=== PATIENT | male | born 1970 | race Caucasian/White ===

== ENCOUNTER 2017-01-28 19:12 | Inpatient (IN) | payer MEDICAID ==
[~2017-01-28] VITALS: Ht 167.6 cm; Wt 62.6 kg
[~2017-01-28 19:12] MED LIST: NKM
--- NOTE | 2017-01-28 19:24 | Emergency Room Report ---
History of Present Illness General Chief Complaint: Chest Pain Source: Patient Present Illness [facility] This 46-year-old male presented after increased chest pain. Patient gradual onset of symptoms. 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 Patient reports having aortic valve replaced . He states that he is not currently taking anticoagulation although he is supposed. The patient reports having Allergies: Coded Allergies: ASPIRIN (Verified Allergy, Unknown, 01/28/17) SERTRALINE (Verified Allergy, Unknown, 01/28/17) Patient History Past Medical History: see triage record Reviewed Nursing Documentation: PMH: Agreed, PSxH: Agreed Nursing Documentation-PMH Hx Pacemaker: Yes Hx Seizures: Yes Review of Systems All Other Systems: negative except mentioned in HPI Physical Exam Vital Signs Date Time Temp Pulse Resp B/P (MAP) Pulse Ox O2 Delivery O2 Flow Rate FiO2 01/28/17 19:07 98.6 84 18 104/72 98 Sp02 EP Interpretation: reviewed, normal General Appearance: normal inspection, well appearing, no apparent distress, alert, GCS 15 Head: atraumatic ENT: normal ENT inspection, hearing grossly normal, normal voice Neck: normal inspection, full range of motion, supple, no bony tend Respiratory: normal inspection, lungs clear, normal breath sounds, no respiratory distress, no retraction, no wheezing Cardiovascular #1: regular rate, rhythm, no edema, other - systolic click from valve no murmur Gastrointestinal: normal inspection, normal bowel sounds, non tender, soft, no guarding, no hernia Genitourinary: no CVA tenderness Musculoskeletal: normal inspection, back normal, normal range of motion Neurologic: normal inspection, alert, responsive, speech normal Psychiatric: normal inspection, judgement/insight normal, mood/affect normal Skin: normal inspection, normal color, no rash Medical Decision Making Diagnostic Impression: Primary Impression: ACS (acute coronary syndrome) Additional Impressions: Mechanical heart valve present Noncompliance with medication regimen ER Course Patient presented for chest pain. Differential diagnosis included but was not limited to acute coronary syndrome, pulmonary embolism, pneumonia, aortic dissection, shingles, pneumothorax, aortic dissection, esophageal rupture, pericarditis. The patient was noted to have chest pain. This appears to be related to the patient's lack of anticoagulation with his mechanical valve. Patient was given Lovenox empirically. The patient noted be thrombocytopenic. The patient was noted to have elevated troponin consistent with cardiac injury Patient was endorsed to Dr. Anaya the pending CT imaging and further disposition based on CT findings. Labs Test 01/28/17 19:20 01/28/17 19:41 01/28/17 20:50 01/28/17 20:57 White Blood Count 6.5 K/UL (4.8-10.8) Red Blood Count 3.66 M/UL (4.70-6.10) Hemoglobin 12.2 G/DL (14.2-18.0) Hematocrit 38.4 % (42.0-52.0) Mean Corpuscular Volume 105 FL (80-99) Mean Corpuscular Hemoglobin 33.4 PG (27.0-31.0) Mean Corpuscular Hemoglobin Concent 31.9 G/DL (32.0-36.0) Red Cell Distribution Width 14.2 % (11.6-14.8) Platelet Count 78 K/UL (150-450) Mean Platelet Volume 11.5 FL (6.5-10.1) Neutrophils (%) (Auto) % (45.0-75.0) Lymphocytes (%) (Auto) % (20.0-45.0) Monocytes (%) (Auto) % (1.0-10.0) Eosinophils (%) (Auto) % (0.0-3.0) Basophils (%) (Auto) % (0.0-2.0) Differential Total Cells Counted 100 Neutrophils % (Manual) 73 % (45-75) Lymphocytes % (Manual) 17 % (20-45) Monocytes % (Manual) 9 % (1-10) Eosinophils % (Manual) 1 % (0-3) Basophils % (Manual) 0 % (0-2) Band Neutrophils 0 % (0-8) Platelet Estimate Decreased Platelet Morphology Normal Red Blood Cell Morphology Normal Sodium Level 141 MMOL/L (136-145) Potassium Level 4.2 MMOL/L (3.5-5.1) Chloride Level 105 MMOL/L (98-107) Carbon Dioxide Level 26 MMOL/L (21-32) Anion Gap 11 mmol/L (5-15) Blood Urea Nitrogen 14 mg/dL (7-18) Creatinine 0.9 MG/DL (0.55-1.30) Estimat Glomerular Filtration Rate > 60 mL/min (>60) Glucose Level 81 MG/DL (74-106) Calcium Level 8.6 MG/DL (8.5-10.1) Total Bilirubin 0.5 MG/DL (0.2-1.0) Aspartate Amino Transf (AST/SGOT) 77 U/L (15-37) Alanine Aminotransferase (ALT/SGPT) 75 U/L (12-78) Alkaline Phosphatase 96 U/L (46-116) Total Creatine Kinase 143 U/L (26-308) Creatine Kinase MB 3.5 NG/ML (0.0-3.6) Creatine Kinase MB Relative Index 2.4 Total Protein 7.2 G/DL (6.4-8.2) Albumin 3.3 G/DL (3.4-5.0) Globulin 3.9 g/dL Albumin/Globulin Ratio 0.8 (1.0-2.7) Urine Color Yellow Urine Appearance Clear Urine pH 5 (4.5-8.0) Urine Specific [place] 1.020 (1.005-1.035) Urine Protein 3+ (NEGATIVE) Urine Glucose (UA) Negative (NEGATIVE) Urine Ketones Negative (NEGATIVE) Urine Occult Blood 5+ (NEGATIVE) Urine Nitrite Negative (NEGATIVE) Urine Bilirubin Negative (NEGATIVE) Urine Urobilinogen 1 MG/DL (0.0-1.0) Urine Leukocyte Esterase 1+ (NEGATIVE) Urine RBC 5-10 /HPF (0 - 0) Urine WBC 2-4 /HPF (0 - 0) Urine Squamous Epithelial Cells None /LPF (NONE/OCC) Urine Bacteria Few /HPF (NONE) Urine Opiates Screen Negative (NEGATIVE) Urine Barbiturates Screen Negative (NEGATIVE) Phencyclidine (PCP) Screen Negative (NEGATIVE) Urine Amphetamines Screen Negative (NEGATIVE) Urine Benzodiazepines Screen Negative (NEGATIVE) Urine Cocaine Screen Negative (NEGATIVE) Urine Marijuana (THC) Screen Positive (NEGATIVE) Troponin I 0.626 ng/mL (0.000-0.056) Prothrombin Time 10.9 SEC (9.30-11.50) Prothromb Time International Ratio 1.0 (0.9-1.1) Activated Partial Thromboplast Time 29 SEC (23-33) Last Vital Signs Date Time Temp Pulse Resp B/P (MAP) Pulse Ox O2 Delivery O2 Flow Rate FiO2 01/28/17 19:07 98.6 84 18 104/72 98 Status: unchanged Disposition: ADMITTED INPATIENT Condition: Serious KarDave Jan 28, 2017 19:24
[2017-01-28] MEDS ORDERED: Enoxaparin 80mg Inj SUBQ ONE (19:30)
[2017-01-28 19:31] LABS: MEAN CORPUSCULAR HEMOGLOBIN 33.4 PG (27.0-31.0); MEAN CORPUSCULAR HGB CONC 31.9 G/DL (32.0-36.0); MEAN CORPUSCULAR VOLUME 105 FL (80-99); MEAN PLATELET VOLUME 11.5 FL (6.5-10.1); PLATELET COUNT 78 K/UL (150-450); RED BLOOD COUNT 3.66 M/UL (4.70-6.10); RED CELL DISTRIBUTION WIDTH 14.2 % (11.6-14.8); WHITE BLOOD COUNT 6.5 K/UL (4.8-10.8)
[2017-01-28 19:45] VITALS: BP 113/76
[2017-01-28 20:21] LABS: ALANINE AMINOTRANSFERASE 75 U/L (12-78); ALBUMIN/GLOBULIN RATIO 0.8 (1.0-2.7); ANION GAP 11 mmol/L (5-15); ASPARTATE AMINO TRANSFERASE 77 U/L (15-37); CALCIUM 8.6 MG/DL (8.5-10.1); CARBON DIOXIDE 26 MMOL/L (21-32); CHLORIDE 105 MMOL/L (98-107); CKMB 3.5 NG/ML (0.0-3.6); CREATININE 0.9 MG/DL (0.55-1.30); GLOMERULAR FILTRATION RATE > 60 mL/min (>60); POTASSIUM 4.2 MMOL/L (3.5-5.1); SODIUM 141 MMOL/L (136-145); TOTAL PROTEIN 7.2 G/DL (6.4-8.2)
[2017-01-28 20:36] LABS: EOSINOPHILS % (MANUAL) 1 % (0-3); LYMPHOCYTES % (MANUAL) 17 % (20-45); NEUTROPHILS % (MANUAL) 73 % (45-75); TOTAL CELLS COUNTED 100
[2017-01-28 20:37] LABS: BAND NEUTROPHILS % (MANUAL) 0 % (0-8); BASOPHILS % (MANUAL) 0 % (0-2); PLATELET ESTIMATE DECREASED; PLATELET MORPHOLOGY NORMAL
[2017-01-28 20:47] LABS: APPEARANCE,URINE CLEAR; KETONES,URINE NEGATIVE (NEGATIVE); LEUKOCYTE ESTERASE ,URINE 1+ (NEGATIVE); NITRITE,URINE NEGATIVE (NEGATIVE); PH,URINE 5 (4.5-8.0); PROTEIN,URINE 3+ (NEGATIVE); UROBILINOGEN,URINE 1 MG/DL (0.0-1.0)
[2017-01-28 21:08] LABS: BACTERIA,URINE FEW /HPF
[2017-01-28 22:44] LABS: PROTHROMBIN TIME 10.9 SEC (9.30-11.50)
[2017-01-28] MEDS ORDERED: Morphine Sulfate 4mg/ml Inj IVP ONE (23:15)
[2017-01-28 23:45] VITALS: BP 124/91
[2017-01-29 01:40] VITALS: BP 112/71
[2017-01-29] MEDS ORDERED: Nitroglycerin Subl 0.4mg tab SL PRN (02:00)
[2017-01-29] MEDS ORDERED: Morphine Sulfate 4mg/ml Inj IVP PRN (02:00)
[2017-01-29 04:00] VITALS: BP 119/72
[2017-01-29 08:00] VITALS: BP 106/72
--- NOTE | 2017-01-29 09:01 | History & Physical ---
History and Physical History & Physicial seen and examined. Dictation completed Lala Augustine MD Jan 29, 2017 09:01
--- NOTE | 2017-01-29 09:08 | General Progress Note ---
Assessment/Plan Status: unchanged Assessment/Plan 1- NSTEMI 2- Cardiac surgery - history of - detailes unknown 3- anxiety/agitation 4- Non Compliance with medical advise plan: continue with current Lovenox Cardiology , Dr Valdez Notified explained the importance of staying in hospital. Side effect including . Not in agreement Subjective ROS Limited/Unobtainable: No Constitutional: Reports: malaise HEENT: Reports: no symptoms Cardiovascular: Reports: no symptoms Respiratory: Reports: no symptoms Gastrointestinal/Abdominal: Reports: no symptoms Genitourinary: Reports: no symptoms Allergies: Coded Allergies: ASPIRIN (Verified Allergy, Unknown, 01/28/17) SERTRALINE (Verified Allergy, Unknown, 01/28/17) Objective Last 24 Hour Vital Signs Date Time Temp Pulse Resp B/P (MAP) Pulse Ox O2 Delivery O2 Flow Rate FiO2 01/29/17 08:00 98.2 78 17 106/72 97 Room Air 01/29/17 04:00 98.6 74 18 119/72 95 Room Air 01/29/17 04:00 71 01/29/17 03:10 98.6 01/29/17 01:40 98.6 77 18 112/71 95 Room Air 01/29/17 00:42 98.6 85 18 124/91 98 Room Air 01/28/17 23:45 98.6 85 18 124/91 98 Room Air 01/28/17 19:45 98.6 82 18 113/76 98 Room Air 01/28/17 19:45 84 18 Room Air 01/28/17 19:07 98.6 84 18 104/72 98 Laboratory Tests 01/28/17 19:20: White Blood Count 6.5, Red Blood Count 3.66L, Hemoglobin 12.2L, Hematocrit 38.4L , Mean Corpuscular Volume 105H, Mean Corpuscular Hemoglobin 33.4H, Mean Corpuscular Hemoglobin Concent 31.9L, Red Cell Distribution Width 14.2, Platelet Count 78L, Mean Platelet Volume 11.5H, Neutrophils (%) (Auto) , Lymphocytes (%) (Auto) , Monocytes (%) (Auto) , Eosinophils (%) (Auto) , Basophils (%) (Auto) , Differential Total Cells Counted 100, Neutrophils % ( Manual) 73, Lymphocytes % (Manual) 17L, Monocytes % (Manual) 9, Eosinophils % ( Manual) 1, Basophils % (Manual) 0, Band Neutrophils 0, Platelet Estimate DecreasedL, Platelet Morphology Normal, Red Blood Cell Morphology Normal, Sodium Level 141, Potassium Level 4.2, Chloride Level 105, Carbon Dioxide Level 26, Anion Gap 11, Blood Urea Nitrogen 14, Creatinine 0.9, Estimat Glomerular Filtration Rate > 60, Glucose Level 81, Calcium Level 8.6, Total Bilirubin 0.5, Aspartate Amino Transf (AST/SGOT) 77H, Alanine Aminotransferase (ALT/SGPT) 75, Alkaline Phosphatase 96, Total Creatine Kinase 143, Creatine Kinase MB 3.5, Creatine Kinase MB Relative Index 2.4, Troponin I 0.588H, Total Protein 7.2, Albumin 3.3L, Globulin 3.9, Albumin/Globulin Ratio 0.8L 01/28/17 19:41: Urine Color Yellow, Urine Appearance Clear, Urine pH 5, Urine Specific [place] 1.020, Urine Protein 3+H, Urine Glucose (UA) Negative, Urine Ketones Negative, Urine Occult Blood 5+H, Urine Nitrite Negative, Urine Bilirubin Negative, Urine Urobilinogen 1H, Urine Leukocyte Esterase 1+H, Urine RBC 5-10H, Urine WBC 2-4, Urine Squamous Epithelial Cells None, Urine Bacteria Few, Urine Opiates Screen Negative, Urine Barbiturates Screen Negative, Phencyclidine (PCP) Screen Negative, Urine Amphetamines Screen Negative, Urine Benzodiazepines Screen Negative, Urine Cocaine Screen Negative, Urine Marijuana (THC) Screen PositiveH 01/28/17 20:50: Troponin I 0.626H 01/28/17 20:57: Prothrombin Time 10.9, Prothromb Time International Ratio 1.0, Activated Partial Thromboplast Time 29 Height (Feet): 5 Height (Inches): 6.00 Weight (Pounds): 138 General Appearance: WD/WN EENT: PERRL/EOMI Neck: supple Cardiovascular: normal rate Respiratory/Chest: lungs clear Abdomen: soft Extremities: non-tender Neurologic: 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
--- NOTE | 2017-01-29 09:50 | Diagnostic Imaging Report ---
Indication: Chest pain Technique: Continuous helical transaxial imaging of the chest was obtained from the thoracic inlet to the upper abdomen during rapid intravenous contrast administration. Arterial phase of enhancement obtained. Coronal 2-D reformats were also obtained and maximum intensity projection images in multiple planes. Study obtained in a Siemens sensation [address] Total Dose length Product (DLP): [address] Dose Index Volume (CTDIvol): 0.17, 12.62, 50.49, 17.43 mGy Comparison: None Findings: Pulmonary artery is well opacified. There is no filling defect to suggest pulmonary embolus. The pulmonary artery is enlarged consistent with pulmonary hypertension. The heart is enlarged. There is a pacemaker present. Aorta is moderately calcified. 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 The vessel may be occluded. A prosthetic aortic valve noted. Minimal reticulation demonstrated within the lungs especially at the lung bases posteriorly. Some of this may be due to atelectasis. Gallbladder is contracted. The remainder of the visualized part of the upper abdomen is unremarkable. Degenerative changes of the thoracic spine are noted. There is a scoliosis convex to the left. Impression: No evidence of pulmonary embolus, aortic dissection or aneurysm. Enlarged pulmonary artery suspicious for pulmonary artery hypertension. Status post aortic valve replacement. Aberrant right spleen and artery. This may be occluded proximally. Atherosclerotic vascular disease Enlarged right thyroid lobe. Pacemaker Scoliosis and degenerative changes of the spine. [facility] has communicated the preliminary results to the Emergency Department. Their findings are largely concordant with this report. The CT scanner at [facility] is accredited by the [employer] and the scans are performed using dose optimization techniques as appropriate to a performed exam including Automatic Exposure control.
[2017-01-29] MEDS ORDERED: Enoxaparin 60mg Inj SUBQ SCH (10:00)
--- NOTE | 2017-01-29 11:58 | Diagnostic Imaging Report ---
Indication: Dyspnea Comparison: None A single view chest radiograph was obtained. Findings: No definite infiltrate or pulmonary vascular congestion identified. Sternotomy and pacemaker noted. The heart is enlarged. The aorta is mildly enlarged consistent with atherosclerotic vascular disease. The bones are remarkable. Impression: No acute disease
--- NOTE | 2017-01-30 10:31 | History and Physical Report ---
DATE OF ADMISSION: 01/28/2017 SOURCE OF INFORMATION: The patient and EMR. HISTORY OF PRESENT ILLNESS: The patient is a pleasant 46-year-old white male. He is a . He gives prior history of multiple cardiac surgeries in the home town in [place]. He reported that he lost consciousness while he was sitting in . He denies any problem with having the control of urine or bladder/bowel movement. He denies any chest pain or headache. He denies palpitation. MEDICATIONS: Hospital medications including, but not limited to morphine sulfate, nitroglycerin, and ranitidine. ALLERGIES: Aspirin and sertraline. SOCIAL HISTORY: Positive for illicit drug abuse (reported THC), positive for tobacco abuse at least 1 pack a day. The patient reported to have 11 children ? FAMILY HISTORY: Reviewed and noncontributory. REVIEW OF SYSTEMS: The patient's all 12 elements of review of systems reviewed with the patient. Pertinent positives and negatives reported as above. PHYSICAL EXAMINATION: VITAL SIGNS: Blood pressure 100/70, temperature 98.2 degrees, pulse oximetry 98% on room air, and respiratory rate 18. HEAD AND NECK: Atraumatic and normocephalic. CHEST: Clear to auscultation. Positive for, not clear, scars of prior surgeries. ABDOMEN: Soft. No organomegaly. MUSCULOSKELETAL: No gross focal motor deficit. NEUROLOGIC: Awake, alert, and oriented x3. PSYCHIATRIC: Mood and affect are anxious. LABORATORY AND DIAGNOSTIC DATA: Labs dated 01/28/2017 shows WBC 6.5, hemoglobin 12.2, platelet count 78, and MCV of 105. Sodium 141, potassium 4.2, BUN 14, and creatinine 0.9. AST 77. Troponin 0.5. Urinalysis, positive for 3+ protein. ASSESSMENT AND PLAN: 1. Non-ST myocardial infarction. 2. Cardiac surgeries - history of - detailed information unavailable. 3. Anemia. 4. Proteinuria. 5. Abnormal liver function tests. 6. Illicit drug abuse and noncompliance with medical advice. 7. Gastrointestinal and deep venous thrombosis prophylaxis. PLAN OF CARE: I agree to admit the patient for telemetry unit. We will repeat the troponin levels x3. Continue with the aspirin, heparin subcutaneous for DVT prophylaxis. Lala Augustine M.D. DR: Jarret JOB#: [id number] CC:
--- NOTE | 2017-01-31 00:15 | Discharge Summary 2 SIG ---
DATE OF ADMISSION: 01/28/2017 DATE OF SIGNING AGAINST MEDICAL ADVISE : 01/29/2017 REASON FOR ADMISSION: 46 years old male presented to the emergency department complaining of chest pain with gradual onset of the symptoms. 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 The patient reported multiply surgeries in [place], including aortic valve replacement. The patient was not on any anticoagulation. The patient also reported smoking , over one pack a day and using marijuana. In the emergency department, first troponin was elevated- 0.588. Chest x-ray revealed no acute cardiopulmonary pathology. EKG with dual pacer activity, but no ST elevation. Aspirin was given in ED . The patient was admitted for further management. Urinalysis revealed proteinuria and microhematuria and +1 leukocyte esterase. HOSPITAL STAY: The patient was admitted. The patient was started on aspirin. Second troponin was also positive with a trend up to 0.626. The patient was started on anticoagulation with Lovenox for possible NSTEMI. Cardiology consult was requested. CTA revealed no evidence of the PE, no aortic dissection or aneurysm. Venous duplex bilateral lower extremities was negative. Blood pressure was stable. Pulse oximetry was stable on room air. The patient had mild anemia with hemoglobin -12.2 and hematocrit -38.4. Liver enzyme revealed elevated AST - 77. The next day patient stated that his pain resolved and decided to go home. he He denied any chest pain, shortness of breath, or other symptoms. The risks and consequences of signing against medical advice were discussed with the patient. The patient verbalized understanding . nevertheless insisted on signing against medical advice form. He signed the form and left. FINAL DIAGNOSES: 1. Chest pain, 2. Elevated troponin, 3. Possibly non-ST elevation myocardial infarction. 4 Congenital heart disease with history of aortic valve replacement 5. Proteinuria. 6. Anemia. 7. Abnormal liver function tests. 8. Illicit drug abuse and noncompliance with medical advice. Lala Augustine M.D. I have been assigned to dictate discharge summary on this account and I was not involved in the patient's management. Estephania Chaves N.P. ([place]te[place]) DR: SARY JOB#: [id number] CC: CORINNA
--- NOTE | 2017-02-01 09:00 | Diagnostic Imaging Report ---
APPROVED REPORT CPT Code: 35861 Present Symptoms Lower Extremity Pain: Bilateral BILATERAL: Imaging reveals a patent deep venous system bilaterally. There is no evidence of thrombus within the femoral, popliteal or tibial segments. The greater saphenous veins are also within normal limits. Doppler indicates normal spontaneous flow within these segments.
== END 2017-01-29 08:30 | disposition left against medical advice (07) | DRG 190 ==
LOC: EDBD 19:12 → EMR 20:17 → ENRESERV 21:29 → EDBEDREQ 21:32 → 2E 23:50 → EDBEDREQ 01-29 01:20 → 2E 01-29 01:25
DX: I21.4 Non-ST elevation (NSTEMI) myocardial infarction (principal); Z95.2 Presence of prosthetic heart valve; D64.9 Anemia, unspecified; F17.200 Nicotine dependence, unspecified, uncomplicated; F12.10 Cannabis abuse, uncomplicated; Q24.9 Congenital malformation of heart, unspecified; R79.89 Other specified abnormal findings of blood chemistry; Z91.19 Patient's noncompliance with other medical treatment and regimen; Z88.6 Allergy status to analgesic agent; Z88.8 Allergy status to other drugs, medicaments and biological substances
CPT/HCPCS: 36415; 71010; 71275; 80053; 80307; 81003; 82550; 82553; 84484; 85007; 85025; 85610; 85730; 87081; 93005; 93970; 96372; 96374; 96375; 99284

== ENCOUNTER 2017-03-02 16:49 | Emergency (ER) | payer SELFPAY ==
[~2017-03-02] VITALS: Ht 167.6 cm; Wt 72.6 kg
[2017-03-02 17:00] VITALS: BP 114/72
--- NOTE | 2017-03-02 17:02 | Emergency Room Report ---
History of Present Illness General Chief Complaint: Chest Pain Source: Patient, EMS Present Illness HPI Patient is a 46-year-old male presented after increased chest pain. Patient prior history of mechanical valve. Patient had prior history of pacemaker. Patient denied taking his medications. The patient reports having had gradual onset of symptoms. He reports having some pain onset approximately one hour prior to arrival. Patient reports having alcohol earlier in the day. Allergies: Coded Allergies: ASPIRIN (Verified Allergy, Unknown, 01/28/17) SERTRALINE (Verified Allergy, Unknown, 01/28/17) Patient History Past Medical History: see triage record Reviewed Nursing Documentation: PMH: Agreed, PSxH: Agreed Nursing Documentation-PMH Past Medical History: No History, Except For Hx Cardiac Problems: No Hx Pacemaker: Yes Hx Cancer: No Hx Gastrointestinal Problems: No Hx Neurological Problems: Yes Hx Seizures: Yes Review of Systems All Other Systems: negative except mentioned in HPI Physical Exam Vital Signs Date Time Temp Pulse Resp B/P (MAP) Pulse Ox O2 Delivery O2 Flow Rate FiO2 03/02/17 16:44 98.4 100 18 117/69 100 Room Air Sp02 EP Interpretation: reviewed, normal General Appearance: normal inspection, no apparent distress, alert, GCS 15, non -toxic, other - disheveled, Chronically Ill Head: atraumatic ENT: normal ENT inspection, hearing grossly normal, normal voice Neck: normal inspection, full range of motion, supple, no bony tend Respiratory: normal inspection, lungs clear, normal breath sounds, no respiratory distress, no retraction, no wheezing Cardiovascular #1: regular rate, rhythm, no edema, other - systolic click Gastrointestinal: normal inspection, normal bowel sounds, non tender, soft, no guarding, no hernia Genitourinary: no CVA tenderness Musculoskeletal: back normal, normal range of motion, tender - left leg Neurologic: normal inspection, alert, oriented x3, responsive, city 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 Differential diagnosis included but was not limited to acute coronary syndrome, pulmonary embolism, pneumonia, aortic dissection, shingles, pneumothorax, aortic dissection, esophageal Rupture, pericarditis. Because of complexity of patient's case laboratory testing and imaging studies were ordered. I EKG interpreted by me showed atrial paced rhythm with a rate of [address] or T wave changes. Patient was given Lovenox. The patient was advised risk benefits alternatives of leaving AGAINST MEDICAL ADVICE and he indicated understanding and all questions are answered patient still continued want to leave and signed AGAINST MEDICAL ADVICE. Despite risks including but not limited to disability and worsening of current lifestyle. Patient was advised to return at anytime. Labs Test 03/02/17 17:15 White Blood Count 5.4 K/UL (4.8-10.8) Red Blood Count 3.17 M/UL (4.70-6.10) Hemoglobin 10.0 G/DL (14.2-18.0) Hematocrit 31.0 % (42.0-52.0) Mean Corpuscular Volume 98 FL (80-99) Mean Corpuscular Hemoglobin 31.7 PG (27.0-31.0) Mean Corpuscular Hemoglobin Concent 32.4 G/DL (32.0-36.0) Red Cell Distribution Width 14.3 % (11.6-14.8) Platelet Count 131 K/UL (150-450) Mean Platelet Volume 9.4 FL (6.5-10.1) Neutrophils (%) (Auto) 65.8 % (45.0-75.0) Lymphocytes (%) (Auto) 19.7 % (20.0-45.0) Monocytes (%) (Auto) 10.9 % (1.0-10.0) Eosinophils (%) (Auto) 1.8 % (0.0-3.0) Basophils (%) (Auto) 1.8 % (0.0-2.0) Prothrombin Time 11.3 SEC (9.30-11.50) Prothromb Time International Ratio 1.1 (0.9-1.1) Activated Partial Thromboplast Time 26 SEC (23-33) EKG Diagnostic Results Rate: other Rhythm: other - paced rhythm Rhythm Strip Diag. Results EP Interpretation: yes Rhythm: no PVC's, no ectopy, other - paced rhythm Last Vital Signs Date Time Temp Pulse Resp B/P (MAP) Pulse Ox O2 Delivery O2 Flow Rate FiO2 03/02/17 16:44 98.4 100 18 117/69 100 Room Air Status: unchanged Disposition: ADMITTED INPATIENT Condition: Serious Dave Lakhani Mar 02, 2017 17:02
[2017-03-02] MEDS ORDERED: Enoxaparin 80mg Inj SUBQ ONE (17:15)
[2017-03-02 17:36] LABS: BASOPHILS % (AUTO) 1.8 % (0.0-2.0); EOSINOPHILS % (AUTO) 1.8 % (0.0-3.0); LYMPHOCYTES % (AUTO) 19.7 % (20.0-45.0); MEAN CORPUSCULAR HEMOGLOBIN 31.7 PG (27.0-31.0); MEAN CORPUSCULAR HGB CONC 32.4 G/DL (32.0-36.0); MEAN CORPUSCULAR VOLUME 98 FL (80-99); MEAN PLATELET VOLUME 9.4 FL (6.5-10.1); MONOCYTES % (AUTO) 10.9 % (1.0-10.0); NEUTROPHILS % (AUTO) 65.8 % (45.0-75.0); PLATELET COUNT 131 K/UL (150-450); RED BLOOD COUNT 3.17 M/UL (4.70-6.10); RED CELL DISTRIBUTION WIDTH 14.3 % (11.6-14.8); WHITE BLOOD COUNT 5.4 K/UL (4.8-10.8)
[2017-03-02 17:40] LABS: INR 1.1 (0.9-1.1); PROTHROMBIN TIME 11.3 SEC (9.30-11.50)
[2017-03-02 17:52] LABS: ANION GAP 12 mmol/L (5-15); CALCIUM 8.4 MG/DL (8.5-10.1); CARBON DIOXIDE 27 MMOL/L (21-32); CHLORIDE 106 MMOL/L (98-107); GLOMERULAR FILTRATION RATE > 60 mL/min (>60); POTASSIUM 3.8 MMOL/L (3.5-5.1); SODIUM 144 MMOL/L (136-145)
[2017-03-02 17:59] VITALS: BP 124/75
[2017-03-02] MEDS ORDERED: Acetaminophen 500mg (ES) tab ORAL ONE (18:00)
[2017-03-02 18:06] LABS: ALANINE AMINOTRANSFERASE 35 U/L (12-78); ALBUMIN/GLOBULIN RATIO 0.8 (1.0-2.7); ASPARTATE AMINO TRANSFERASE 44 U/L (15-37); CKMB 4.6 NG/ML (0.0-3.6); TOTAL PROTEIN 7.1 G/DL (6.4-8.2)
--- NOTE | 2017-03-03 12:54 | Diagnostic Imaging Report ---
Indication: SOB Technique: One view of the chest Comparison: 01/28/2017 Findings: The heart is enlarged. There is generalized bilateral interstitial prominence new increases the previous study.. There is a left chest bifocal pacemaker. The pleural spaces are clear. Prior median sternotomy and aortic valve repair noted Impression: Mild interstitial congestion Cardiomegaly Other stable findings as noted
--- NOTE | 2017-03-05 15:37 | Cardiology Report ---
APPROVED REPORT EKG Measurement Heart [id number] atrrial sensed ventricualr paced
== END 2017-03-02 18:04 | disposition left against medical advice (07) ==
LOC: EDBD 16:49 → EMR 17:15
DX: R07.9 Chest pain, unspecified (principal); Z95.0 Presence of cardiac pacemaker; Z95.2 Presence of prosthetic heart valve; Z88.6 Allergy status to analgesic agent
CPT/HCPCS: 36415; 71010; 80053; 82550; 82553; 84484; 85025; 85610; 85730; 93005; 96372; 99283; J1650

== ENCOUNTER 2017-05-27 17:56 | Inpatient (IN) | payer MEDICAID ==
[~2017-05-27] VITALS: Ht 160 cm; Wt 63.5 kg
[2017-05-27 18:05] VITALS: BP 110/80
--- NOTE | 2017-05-27 18:26 | Emergency Room Report ---
History of Present Illness General Chief Complaint: Chest Pain Source: Patient, Medical Record Present Illness HPI 46-year-old male, history of hypertension, has a pacemaker, AVR p/w chest pain for one hour. Chest pain started while at rest. Localized to substernal area, no radiation to back or other areas, sharp in nature, gradual in onset, currently 8/10. + SOB. Denies palpitations, diaphoresis, n/v. Patient states that he was hospitalized one month ago, does not recall the hospital name, was told that he had a heart attack, but denies having any cardiac cath Denies fever, chills, cough, abd pain. Denies trauma. Allergies: Coded Allergies: ASPIRIN (Verified Allergy, Unknown, 01/28/17) SERTRALINE (Verified Allergy, Unknown, 01/28/17) Uncoded Allergies: ASPRIN (Allergy, Unknown, 05/27/17) Patient History Past Medical History: see triage record Past Surgical History: none Pertinent Family History: none Reviewed Nursing Documentation: PMH: Agreed, PSxH: Agreed Nursing Documentation-PMH Past Medical History: No History, Except For Hx Pacemaker: Yes Hx Cancer: No Hx Gastrointestinal Problems: No Hx Neurological Problems: Yes Hx Seizures: Yes Review of Systems All Other Systems: negative except mentioned in HPI Physical Exam Vital Signs Date Time Temp Pulse Resp B/P (MAP) Pulse Ox O2 Delivery O2 Flow Rate FiO2 05/27/17 17:59 98.7 87 16 112/81 98 Room Air 98.8 Sp02 EP Interpretation: reviewed, normal General Appearance: alert, GCS 15, non-toxic, mild distress Head: normocephalic, atraumatic Eyes: bilateral eye normal inspection, bilateral eye PERRL, bilateral eye EOMI ENT: normal ENT inspection, normal pharynx, normal voice, moist mucus membranes Neck: normal inspection, full range of motion, supple Respiratory: normal inspection, lungs clear, normal breath sounds, no respiratory distress, no retraction, no wheezing, speaking full sentences, chest symmetrical Cardiovascular #1: normal inspection, regular rate, rhythm, no edema, normal capillary refill Cardiovascular #2: 2+ radial (R), 2+ radial (L) Gastrointestinal: normal inspection, non tender, soft, non-distended, no guarding Genitourinary: no CVA tenderness Musculoskeletal: normal inspection, back normal, normal range of motion, non- tender Neurologic: normal inspection, alert, oriented x3, responsive, motor strength/ tone normal, sensory intact, normal gait, speech normal Psychiatric: normal inspection, judgement/insight normal, memory normal Skin: normal inspection, normal color, no rash, warm/dry, well hydrated, normal turgor Medical Decision Making Diagnostic Impression: Primary Impression: ACS (acute coronary syndrome) ER Course 46-year-old male p/w CP DDX: ACS vs. CHF vs. pneumonia vs. gastritis/GERD vs. pneumothorax versus pericarditis Plan: IV access, obtain labs including troponin, EKG, CXR pain control with nitro / morphine ER course: Patient not gien ASA states allergic trop positive given heparin Disposition: pt admitted to tele under Dr Augustine who has accepted pt Please note that this Emergency Department Report was dictated using [employer] technology software, occasionally this can lead to erroneous entry secondary to interpretation by the dictation equipment. EKG Diagnostic Results EP Interpretation: Yes Rate: normal Rhythm: Paced rhythm ST Segments: Wide QRS, T wave inversion aVL, no sgarbossa criteria ASA given to patient: no due to allergy Rhythm Strip EP Interpretation: Yes Rate: 90 Rhythm: NSR, no PVCs, no ectopy Chest X-ray CXR: Ordered: Yes 1 view Indication: Chest pain EP interpretation: Yes Interpretation: No consolidation, no effusion, no PTX, no acute cardiopulmonary disease Impression: No acute disease Electronically signed by Jenna Fair MD Laboratory Tests Test 05/27/17 18:20 05/27/17 20:25 White Blood Count 6.0 K/UL (4.8-10.8) Red Blood Count 4.25 M/UL (4.70-6.10) L Hemoglobin 11.2 G/DL (14.2-18.0) L Hematocrit 36.2 % (42.0-52.0) L Mean Corpuscular Volume 85 FL (80-99) Mean Corpuscular Hemoglobin 26.4 PG (27.0-31.0) L Mean Corpuscular Hemoglobin Concent 31.1 G/DL (32.0-36.0) L Red Cell Distribution Width 16.9 % (11.6-14.8) H Platelet Count 98 K/UL (150-450) L Mean Platelet Volume 13.2 FL (6.5-10.1) H Neutrophils (%) (Auto) % (45.0-75.0) Lymphocytes (%) (Auto) % (20.0-45.0) Monocytes (%) (Auto) % (1.0-10.0) Eosinophils (%) (Auto) % (0.0-3.0) Basophils (%) (Auto) % (0.0-2.0) Differential Total Cells Counted 100 Neutrophils % (Manual) 79 % (45-75) H Lymphocytes % (Manual) 18 % (20-45) L Monocytes % (Manual) 2 % (1-10) Eosinophils % (Manual) 1 % (0-3) Basophils % (Manual) 0 % (0-2) Band Neutrophils 0 % (0-8) Platelet Estimate Decreased L Platelet Morphology Normal Hypochromasia 1+ Anisocytosis 1+ Urine Color Yellow Urine Appearance Clear Urine pH 6 (4.5-8.0) Urine Specific Cassandra 1.020 (1.005-1.035) Urine Protein 3+ (NEGATIVE) H Urine Glucose (UA) Negative (NEGATIVE) Urine Ketones Negative (NEGATIVE) Urine Occult Blood 4+ (NEGATIVE) H Urine Nitrite Negative (NEGATIVE) Urine Bilirubin Negative (NEGATIVE) Urine Urobilinogen 1 MG/DL (0.0-1.0) H Urine Leukocyte Esterase 1+ (NEGATIVE) H Urine RBC Tntc /HPF (0 - 0) H Urine WBC 2-4 /HPF (0 - 0) Urine Squamous Epithelial Cells Occasional /LPF Urine Bacteria Occasional /HPF (NONE) Sodium Level 138 MMOL/L (136-145) Potassium Level 4.6 MMOL/L (3.5-5.1) Chloride Level 100 MMOL/L (98-107) Carbon Dioxide Level 30 MMOL/L (21-32) Anion Gap 8 mmol/L (5-15) Blood Urea Nitrogen 25 mg/dL (7-18) H Creatinine 1.1 MG/DL (0.55-1.30) Estimate Glomerular Filtration Rate > 60 mL/min (>60) Glucose Level 73 MG/DL (74-106) L Calcium Level 8.7 MG/DL (8.5-10.1) Total Bilirubin 0.5 MG/DL (0.2-1.0) Aspartate Amino Transferase (AST) 62 U/L (15-37) H Alanine Aminotransferase (ALT) 43 U/L (12-78) Alkaline Phosphatase 109 U/L (46-116) Troponin I 0.113 ng/mL (0.000-0.056) Pro-B-Type Natriuretic Peptide 6542 pg/mL (0-125) H Total Protein 7.6 G/DL (6.4-8.2) Albumin 3.4 G/DL (3.4-5.0) Globulin 4.2 g/dL Albumin/Globulin Ratio 0.8 (1.0-2.7) L Urine Opiates Screen Negative (NEGATIVE) Urine Barbiturates Screen Negative (NEGATIVE) Phencyclidine (PCP) Screen Negative (NEGATIVE) Urine Amphetamines Screen Negative (NEGATIVE) Urine Benzodiazepines Screen Positive (NEGATIVE) H Urine Cocaine Screen Negative (NEGATIVE) Urine Marijuana (THC) Screen Positive (NEGATIVE) H Serum Alcohol 13 mg/dL Prothrombin Time 12.3 SEC (9.30-11.50) H Prothrombin Time INR 1.2 (0.9-1.1) H PTT 26 SEC (23-33) Last Vital Signs Date Time Temp Pulse Resp B/P (MAP) Pulse Ox O2 Delivery O2 Flow Rate FiO2 05/27/17 17:59 98.7 87 16 112/81 98 Room Air 98.8 Disposition: ADMITTED INPATIENT Condition: Serious Scripts No Active Prescriptions or Reported Meds Jenna Fair M.D. May 27, 2017 18:26
[2017-05-27 18:34] LABS: HEMATOCRIT 36.2 % (42.0-52.0); HEMOGLOBIN 11.2 G/DL (14.2-18.0); MEAN CORPUSCULAR VOLUME 85 FL (80-99); PLATELET COUNT 98 K/UL (150-450); RED BLOOD COUNT 4.25 M/UL (4.70-6.10); RED CELL DISTRIBUTION WIDTH 16.9 % (11.6-14.8)
[2017-05-27 18:41] LABS: APPEARANCE,URINE CLEAR; BILIRUBIN, URINE NEGATIVE (NEGATIVE); GLUCOSE, URINE (UA) NEGATIVE (NEGATIVE); KETONES,URINE NEGATIVE (NEGATIVE); LEUKOCYTE ESTERASE ,URINE 1+ (NEGATIVE); NITRITE,URINE NEGATIVE (NEGATIVE); PH,URINE 6 (4.5-8.0); PROTEIN,URINE 3+ (NEGATIVE); UROBILINOGEN,URINE 1 MG/DL (0.0-1.0)
[2017-05-27 18:45] LABS: COLOR,URINE YELLOW
[2017-05-27 18:58] LABS: ANION GAP 8 mmol/L (5-15); BLOOD UREA NITROGEN 25 mg/dL (7-18); CALCIUM 8.7 MG/DL (8.5-10.1); CARBON DIOXIDE 30 MMOL/L (21-32); CHLORIDE 100 MMOL/L (98-107); CREATININE 1.1 MG/DL (0.55-1.30); POTASSIUM 4.6 MMOL/L (3.5-5.1); SODIUM 138 MMOL/L (136-145)
[2017-05-27 19:00] VITALS: BP 110/77
[2017-05-27 19:10] LABS: ALANINE AMINOTRANSFERASE 43 U/L (12-78); ALBUMIN 3.4 G/DL (3.4-5.0); ALBUMIN/GLOBULIN RATIO 0.8 (1.0-2.7); ALKALINE PHOSPHATASE 109 U/L (46-116); ASPARTATE AMINO TRANSFERASE 62 U/L (15-37); BILIRUBIN,TOTAL 0.5 MG/DL (0.2-1.0)
[2017-05-27] MEDS ORDERED: Heparin 5000 units/ml inj IV ONE ×2 (20:15→22:00)
[2017-05-27] MEDS ORDERED: Heparin 25,000u/D5W 500ml 500 ML IV SCH ×2 (20:15→22:00)
[2017-05-27] MEDS ORDERED: Morphine Sulfate 4mg/ml Inj IVP ONE (20:15)
[2017-05-27 20:53] LABS: INR 1.2 (0.9-1.1)
[2017-05-27 21:18] VITALS: BP 108/72
[2017-05-27] MEDS ORDERED: Nitroglycerin Subl 0.4mg tab SL PRN (22:00)
[2017-05-27 22:45] VITALS: BP 112/81
[2017-05-28] VITALS: BP 111/76
[2017-05-28] MEDS ORDERED: Morphine Sulfate 4mg/ml Inj ONE ×2 (00:25→04:34)
[2017-05-28] MEDS: Morphine Sulfate 2mg/ml Inj IVP PRN ×2 (00:38→04:42)
[2017-05-28 04:00] VITALS: BP 107/74
--- NOTE | 2017-05-28 07:37 | History & Physical ---
History and Physical History & Physicial seen and examined. Dictation completed Lala Augustine MD May 28, 2017 07:37
--- NOTE | 2017-05-28 09:32 | History and Physical Report ---
DATE OF ADMISSION: 05/27/2017 SOURCE OF INFORMATION: The patient and EMR. HISTORY OF PRESENT ILLNESS: The patient is a 46-year-old homeless white male. The patient is complaining of the chest pain. The patient is complaining of the pain which is localized to the anterior part of the chest with radiation to both of his shoulders. The patient gives prior history of open heart surgery as a child and subsequently pacemaker placement in 1991. The patient is not able to provide the location for these symptoms. The patient is a status post hospitalization in [facility] about a month ago, status post AMA when he was asking for more narcotics IV medications. At the time of evaluation, the patient denies any nausea, vomitus, diarrhea, or constipation. PAST SURGICAL HISTORY: Open heart surgery, pacemaker placement (the detailed information unavailable). ALLERGIES: To aspirin and sertraline. FAMILY HISTORY: Reviewed and noncontributory. MEDICATIONS: Current hospital medications including, but not limited to Protonix 40 mg daily, nitroglycerin 0.4, and heparin drip. SOCIAL HISTORY: The patient is homeless. Positive for substance abuse including marijuana and benzos. PHYSICAL EXAMINATION: VITAL SIGNS: Blood pressure 110/70, pulse rate 95, temperature 97.5, and pulse oximetry 95% on room air. HEAD AND NECK: Atraumatic and normocephalic. CHEST: Clear to auscultation. HEART: S1 and S2. Regular rate and rhythm. ABDOMEN: Soft. No organomegaly. MUSCULOSKELETAL: No gross lateralized finding. PSYCHIATRIC: Mood and affect is anxious. LABORATORY AND DIAGNOSTIC DATA: Dated 05/27/2017 shows WBC 6, hemoglobin 11.2, and platelets 98,000. Sodium 138, potassium 4.6, BUN 25, and creatinine 1.1. Troponin 0.1. BNP 6542. Chest x-ray, official results pending. ASSESSMENT AND PLAN: 1. Abnormal troponin, possibility of non-ST myocardial infarction cannot be excluded. 2. Open heart surgery and pacemaker placement - detailed history unobtainable. 3. Refusal of medical care (as the patient reported that the patient did not want to have heparin drip). 4. Abnormal liver function tests. 5. Abnormal BNP. 6. Normocytic anemia. I had a detailed conversation regarding the refusal of getting heparin drip. The patient is repeatedly requesting for morphine medications. The patient started cursing. For the safety I stepped out of the room and I advised the nurses to use security if they notice any sign of aggression. Lala Augustine M.D. DR: PATRIZIA JOB#: [id number] CC:
[2017-05-28] MEDS ORDERED: Morphine Sulfate 4mg/ml Inj IVP PRN (10:45)
--- NOTE | 2017-05-28 11:27 | Diagnostic Imaging Report ---
Indication: Chest pain Comparison: 03/02/2017 A single view chest radiograph was obtained. Findings: Prominent pulmonary vascularity and heart size demonstrated. Interstitial densities noted. Sternotomy noted. Pacemaker again noted. IMPRESSION: Mild interstitial edema/CHF
--- NOTE | 2017-05-30 15:26 | Cardiology Report ---
APPROVED REPORT EKG Measurement Heart [id number] NE 142P76 [id number] a sensed v paced
--- NOTE | 2017-05-31 12:22 | Discharge Summary ---
Discharge Summary Hospital Course Date of Admission May 27, 2017 at 20:12 Date of Discharge May 28, 2017 at 12:15 Admitting Diagnosis acs HPI Jassi Zarco is a 46 year old male who was admitted on May 27, 2017 at 20: 12 for Acute Coronary Syndrome Hospital Course dc summary [id number] Discharge Condition Upon Discharge: stable Discharge Disposition Patient signed AMA Discharge Diagnoses: Discharge Instructions Discharge Instructions Special Instructions I have been assigned to complete a D/C Summary on this account. I was not involved in the patient management Estephania Chaves NP (Vanchtein) May 31, 2017 12:22
--- NOTE | 2017-06-01 03:00 | Discharge Summary 2 SIG ---
DATE OF ADMISSION: 05/27/2017 DATE OF DISCHARGE: 05/28/2017 REASON FOR ADMISSION: 46-year-old male with history of open-heart surgery, pacemaker, presented to emergency department complaining of chest pain. The patient was homeless. Troponin was elevated -0.113. ProBNP -6542. No leukocytosis, mild anemia. Hemoglobin -11.2 and platelets -98,000. Urine tox screen was positive for benzodiazepine and marijuana. Alcohol level- 13. AST elevated. Urinalysis revealed no evidence of UTI. Chest x-ray revealed mild CHF. The patient was admitted with chest pain, rule out acute coronary syndrome, possible non-STEMI. HOSPITAL COURSE: The patient was admitted to telemetry floor. Heparin drip was ordered for possible NSTEMI along with serial troponin to follow up. The patient refused heparin drip. He refused further blood draw. While the attending doctor tried to explain to the patient the rationale for heparin drip, the patient kept cursing and refusing the heparin drip. He used profanity words. Nursing staff was advised to use security. The patient decided to sign against medical advice form on 05/28/2017. He declined to listen to the risks and consequences of signing against medical advise. He signed the AMA form, refused to sign homeless consent, and left accompanied by security to the lobby. FINAL DIAGNOSES: 1. Abnormal troponin. 2. Possible [id number] myocardial infarction. 3. History of open-heart surgery, 4. Status post permanent pacemaker placement. 4. Abnormal LFT. 5. Abnormal proBNP of 6542, 6. Refusal of care. 7. Normocytic anemia. Lala Augustine M.D. I have been assigned to dictate discharge summary on this account and I was not involved in the patient's management. Estephania FreitasGood Samaritan HospitalBrandon N.P. DR: Jeanne JOB#: [id number] CC: CORINNA
== END 2017-05-28 12:15 | disposition left against medical advice (07) | DRG 190 ==
LOC: EDBD 17:56 → EMR 18:00 → 2E 20:12 → EDBEDREQ 21:09 → 2E 05-28 08:11
DX: I21.4 Non-ST elevation (NSTEMI) myocardial infarction (principal); I10 Essential (primary) hypertension; R74.9 Abnormal serum enzyme level, unspecified; Z95.0 Presence of cardiac pacemaker; Z88.6 Allergy status to analgesic agent; Z88.8 Allergy status to other drugs, medicaments and biological substances; Z59.0 Homelessness; R79.89 Other specified abnormal findings of blood chemistry; D64.9 Anemia, unspecified; Z53.29 Procedure and treatment not carried out because of patient's decision for other reasons; Z98.890 Other specified postprocedural states
CPT/HCPCS: 36415; 71045; 80053; 80307; 80329; 81003; 83880; 84484; 85007; 85025; 85610; 85730; 93005; 99285

== ENCOUNTER 2017-05-28 19:10 | Emergency (ER) | payer MEDICAID ==
[~2017-05-28] VITALS: Ht 167.6 cm; Wt 63.5 kg
[2017-05-28 19:15] VITALS: BP 120/80
[2017-05-28] MEDS ORDERED: Morphine Sulfate 4mg/ml Inj IVP ONE (19:30)
[2017-05-28 19:42] LABS: EOSINOPHILS % (AUTO) 0.3 % (0.0-3.0); HEMATOCRIT 37.7 % (42.0-52.0); HEMOGLOBIN 11.6 G/DL (14.2-18.0); LYMPHOCYTES % (AUTO) 15.2 % (20.0-45.0); MEAN CORPUSCULAR VOLUME 85 FL (80-99); MONOCYTES % (AUTO) 7.6 % (1.0-10.0); NEUTROPHILS % (AUTO) 75.8 % (45.0-75.0); PLATELET COUNT 107 K/UL (150-450); RED BLOOD COUNT 4.43 M/UL (4.70-6.10); RED CELL DISTRIBUTION WIDTH 16.8 % (11.6-14.8); WHITE BLOOD COUNT 5.6 K/UL (4.8-10.8)
[2017-05-28 19:52] LABS: ANION GAP 4 mmol/L (5-15); BLOOD UREA NITROGEN 29 mg/dL (7-18); CALCIUM 9.1 MG/DL (8.5-10.1); CARBON DIOXIDE 32 MMOL/L (21-32); CHLORIDE 100 MMOL/L (98-107); CREATININE 1.2 MG/DL (0.55-1.30); POTASSIUM 4.6 MMOL/L (3.5-5.1); SODIUM 136 MMOL/L (136-145)
[2017-05-28 20:07] LABS: ALANINE AMINOTRANSFERASE 44 U/L (12-78); ALBUMIN 3.5 G/DL (3.4-5.0); ALBUMIN/GLOBULIN RATIO 0.8 (1.0-2.7); ALKALINE PHOSPHATASE 113 U/L (46-116); ASPARTATE AMINO TRANSFERASE 57 U/L (15-37); BILIRUBIN,TOTAL 0.6 MG/DL (0.2-1.0); CKMB 7.8 NG/ML (0.0-3.6); CREATINE KINASE 274 U/L (26-308)
[2017-05-28 21:00] VITALS: BP 110/93
[2017-05-28 21:25] LABS: INR 1.1 (0.9-1.1)
[2017-05-28 22:00] VITALS: BP 119/81
--- NOTE | 2017-05-28 22:41 | Emergency Room Report ---
History of Present Illness General Chief Complaint: Chest Pain Source: Patient (FABIÁN ANAYA M.D.) Present Illness HPI 46-year-old male presents ED for evaluation. Patient brought in by EMS complaining of chest pain. Sharp, midsternal, 8/10, nonradiating. Patient states he has a history of pacemaker. EMS states the patient was admitted here yesterday and discharged today. Patient denies alcohol or drug use. No other aggravating relieving factors. Denies any other associated symptoms (FABIÁN ANAYA M.D.) Allergies: Coded Allergies: ASPIRIN (Verified Allergy, Unknown, 01/28/17) SERTRALINE (Verified Allergy, Unknown, 01/28/17) Uncoded Allergies: ASPRIN (Allergy, Unknown, 05/27/17) Patient History Past Medical History: seizures Past Surgical History: pacemaker Pertinent Family History: none Social History: Denies: smoking, alcohol use, drug use Immunizations: UTD Reviewed Nursing Documentation: PMH: Agreed, PSxH: Agreed (FABIÁN ANAYA M.D.) Nursing Documentation-PMH Past Medical History: No History, Except For Hx Pacemaker: Yes Hx Cancer: No Hx Gastrointestinal Problems: No Hx Neurological Problems: Yes Hx Seizures: Yes (FABIÁN ANAYA M.D.) Review of Systems All Other Systems: negative except mentioned in HPI (FABIÁN ANAYA M.D.) Physical Exam Vital Signs Date Time Temp Pulse Resp B/P (MAP) Pulse Ox O2 Delivery O2 Flow Rate FiO2 05/28/17 19:05 97.7 80 18 120/80 97 Room Air 97.7 Sp02 EP Interpretation: reviewed, normal General Appearance: no apparent distress, alert, GCS 15, non-toxic Head: normocephalic, atraumatic Eyes: bilateral eye normal inspection, bilateral eye PERRL ENT: hearing grossly normal, normal pharynx, no angioedema, normal voice Neck: full range of motion, supple/symm/no masses Respiratory: chest non-tender, lungs clear, normal breath sounds, speaking full sentences Cardiovascular #1: regular rate, rhythm, no edema Cardiovascular #2: 2+ carotid (R), 2+ carotid (L), 2+ radial (R), 2+ radial (L) , 2+ dorsalis pedis (R), 2+ dorsalis pedis (L) Gastrointestinal: normal bowel sounds, non tender, soft, non-distended, no guarding, no rebound Rectal: deferred Genitourinary: normal inspection, no CVA tenderness Musculoskeletal: back normal, gait/station normal, normal range of motion, non- tender Neurologic: alert, oriented x3, responsive, motor strength/tone normal, sensory intact, speech normal Psychiatric: judgement/insight normal, memory normal, mood/affect normal, no suicidal/homicidal ideation Reflexes: 3+ bicep (R), 3+ bicep (L), 3+ tricep (R), 3+ tricep (L), 3+ knee (R) , 3+ knee (L) Skin: normal color, no rash, warm/dry, well hydrated Lymphatic: no adenopathy (FABIÁN ANAYA M.D.) Medical Decision Making Diagnostic Impression: Primary Impression: ACS (acute coronary syndrome) Additional Impression: Substance abuse ER Course Hospital Course 46-year-old male presents ED complaining of chest pain. Differential diagnoses include: HI/unstable angina, contusion, muscle strain, PTX, rib fracture Clinical course Patient placed on stretcher. 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 After initial history and physical I ordered labs, EKG, chest x-ray, morphine labs reviewed- no leukocyosis, hb/hct stable, electrolytes ok, trop 0.08, UTox + multiple substances EKG - paced rhythm, no acute ischemic changes interpreted by me Chest x-ray- cardiomegaly, pacemaker I reviewed EMR; patient left AMA few hours prior to being picked up by EMS. According to documentation patient was requesting continuous narcotic medications. Refuses heparin drip On review of labs troponin is trending down. However given significant cardiac risk factors patient may still warrants readmission I. I feel this is a highly complex case requiring extensive working including EKG/Rhythm strip, Xray/CT/US, Blood/urine lab work, repeat exams while in ED, and administration of strong opiates/narcotics for pain control, admission to hospital or close patient follow up. Diagnosis - ACS, substance abuse admitted to telemetry in serious condition Labs Test 05/28/17 19:20 White Blood Count 5.6 K/UL (4.8-10.8) Red Blood Count 4.43 M/UL (4.70-6.10) Hemoglobin 11.6 G/DL (14.2-18.0) Hematocrit 37.7 % (42.0-52.0) Mean Corpuscular Volume 85 FL (80-99) Mean Corpuscular Hemoglobin 26.3 PG (27.0-31.0) Mean Corpuscular Hemoglobin Concent 30.9 G/DL (32.0-36.0) Red Cell Distribution Width 16.8 % (11.6-14.8) Platelet Count 107 K/UL (150-450) Mean Platelet Volume 16.9 FL (6.5-10.1) Neutrophils (%) (Auto) 75.8 % (45.0-75.0) Lymphocytes (%) (Auto) 15.2 % (20.0-45.0) Monocytes (%) (Auto) 7.6 % (1.0-10.0) Eosinophils (%) (Auto) 0.3 % (0.0-3.0) Basophils (%) (Auto) 1.0 % (0.0-2.0) Prothrombin Time 11.5 SEC (9.30-11.50) Prothromb Time International Ratio 1.1 (0.9-1.1) Activated Partial Thromboplast Time 26 SEC (23-33) Sodium Level 136 MMOL/L (136-145) Potassium Level 4.6 MMOL/L (3.5-5.1) Chloride Level 100 MMOL/L (98-107) Carbon Dioxide Level 32 MMOL/L (21-32) Anion Gap 4 mmol/L (5-15) Blood Urea Nitrogen 29 mg/dL (7-18) Creatinine 1.2 MG/DL (0.55-1.30) Estimat Glomerular Filtration Rate > 60 mL/min (>60) Glucose Level 66 MG/DL (74-106) Calcium Level 9.1 MG/DL (8.5-10.1) Total Bilirubin 0.6 MG/DL (0.2-1.0) Aspartate Amino Transf (AST/SGOT) 57 U/L (15-37) Alanine Aminotransferase (ALT/SGPT) 44 U/L (12-78) Alkaline Phosphatase 113 U/L (46-116) Total Creatine Kinase 274 U/L (26-308) Creatine Kinase MB 7.8 NG/ML (0.0-3.6) Creatine Kinase MB Relative Index 2.8 Troponin I 0.081 ng/mL (0.000-0.056) Pro-B-Type Natriuretic Peptide 4529 pg/mL (0-125) Total Protein 8.0 G/DL (6.4-8.2) Albumin 3.5 G/DL (3.4-5.0) Globulin 4.5 g/dL Albumin/Globulin Ratio 0.8 (1.0-2.7) Urine Opiates Screen Positive (NEGATIVE) Urine Barbiturates Screen Negative (NEGATIVE) Phencyclidine (PCP) Screen Negative (NEGATIVE) Urine Amphetamines Screen Negative (NEGATIVE) Urine Benzodiazepines Screen Positive (NEGATIVE) Urine Cocaine Screen Negative (NEGATIVE) Urine Marijuana (THC) Screen Positive (NEGATIVE) (FABIÁN ANAYA M.D.) ER Course Patient signed out to me by Dr Anaya at 1030pm Patient repeatedly asking for morphine Was already given dose previously I offered Tylenol, patient states he doesnt want it States "fuck this place, I'm outta here." On review of EMR, patient had signed out AMA from floor a few hours prior as well I recommended patient reconsider and stay in ED/hospital for admission however doesnt want to stay He is alert and oriented X3, has capacity Signed out AMA, RN has paperwork Strongly advised PMD followup for Cardiology referral given his heart history (CATHIE DOMINGO M.D.) EKG Diagnostic Results Rate: normal Rhythm: other - paced ST Segments: no acute changes ASA given to the pt in ED: No - given by ems (FABIÁN ANAYA M.D.) Rhythm Strip Diag. Results EP Interpretation: yes Rhythm: no PVC's, no ectopy, other - paced (FABIÁN ANAYA M.D.) Chest X-Ray Diagnostic Results Chest X-Ray Diagnostic Results : Chest X-Ray Ordered: Yes # of Views/Limited/Complete: 1 View Indication: Chest Pain EP Interpretation: Yes Interpretation: no consolidation, no effusion, no pneumothorax, no acute cardiopulmonary disease, other - cardiomegaly. pacemaker Impression: Other - chf Electronically Signed by: Electronically signed by Fabián Anaya MD (FABIÁN ANAYA M.D.) Last Vital Signs Date Time Temp Pulse Resp B/P (MAP) Pulse Ox O2 Delivery O2 Flow Rate FiO2 05/28/17 19:31 97.7 05/28/17 19:15 80 18 Room Air 05/28/17 19:15 120/80 97 Status: improved (FABIÁN ANAYA M.D.) Disposition: AGAINST MEDICAL ADVICE Condition: Serious Scripts No Active Prescriptions or Reported Meds Referrals: NOT CHOSEN IPA/,REFERRING (PCP) FABIÁN ANAYA M.D. May 28, 2017 22:41 CATHIE DOMINGO M.D. May 28, 2017 23:26
[2017-05-28 23:15] VITALS: BP 119/81
--- NOTE | 2017-05-29 09:21 | Diagnostic Imaging Report ---
Indication: Chest pain Technique: One view of the chest Comparison: 05/27/2017 Findings: The heart is enlarged. There is a left chest bifocal pacemaker. There are median sternotomy sutures. Bilateral interstitial congestion appears similar to the prior exam. There may be a small pleural effusion on the right. Impression: Pulmonary interstitial congestion, possible small right pleural effusion, cardiomegaly, unchanged over one day
--- NOTE | 2017-05-30 08:35 | Cardiology Report ---
APPROVED REPORT EKG Measurement Heart [id number] TN [id number] [id number] Sinus rhythm Ventricular paced rhythm Single VPC
== END 2017-05-28 23:15 | disposition left against medical advice (07) ==
LOC: EDBD 19:10 → EMR 19:20 → CANBEDREQ 23:25
DX: I24.9 Acute ischemic heart disease, unspecified (principal); F19.10 Other psychoactive substance abuse, uncomplicated; Z95.0 Presence of cardiac pacemaker; Z88.6 Allergy status to analgesic agent; Z88.8 Allergy status to other drugs, medicaments and biological substances
CPT/HCPCS: 36415; 71045; 80053; 80307; 82550; 82553; 83880; 84484; 85025; 85610; 85730; 93005; 96374; 99284; J2270

== ENCOUNTER 2017-07-08 18:32 | Emergency (ER) | payer MEDICAID ==
[~2017-07-08] VITALS: Ht 172.7 cm; Wt 72.6 kg
[2017-07-08 18:59] LABS: HEMATOCRIT 32.9 % (42.0-52.0); HEMOGLOBIN 10.2 G/DL (14.2-18.0); MEAN CORPUSCULAR VOLUME 81 FL (80-99); PLATELET COUNT 95 K/UL (150-450); RED BLOOD COUNT 4.09 M/UL (4.70-6.10); WHITE BLOOD COUNT 7.4 K/UL (4.8-10.8)
[2017-07-08] MEDS ORDERED: Ketorolac 30mg Inj IV ONE (19:00)
--- NOTE | 2017-07-08 19:04 | Emergency Room Report ---
History of Present Illness General Chief Complaint: Chest Pain Source: Patient, Medical Record Present Illness HPI Patient present with complaints of left upper chest pain Reports that started yesterday And has been there since then Denies any pleurisy Denies any vomiting Patient has had previous presentation with elevated troponin and request for admission Denies any fall or trauma denies any fevers or chills denies any recent travel Allergies: Coded Allergies: ASPIRIN (Verified Allergy, Unknown, 01/28/17) SERTRALINE (Verified Allergy, Unknown, 01/28/17) Uncoded Allergies: ASPRIN (Allergy, Unknown, 05/27/17) Patient History Past Medical History: see triage record Pertinent Family History: none Reviewed Nursing Documentation: PMH: Agreed; PSxH: Agreed Nursing Documentation-PMH Past Medical History: No History, Except For Hx Pacemaker: Yes Hx Cancer: No Hx Gastrointestinal Problems: No Hx Neurological Problems: Yes Hx Seizures: Yes Review of Systems All Other Systems: negative except mentioned in HPI Physical Exam Vital Signs Date Time Temp Pulse Resp B/P (MAP) Pulse Ox O2 Delivery O2 Flow Rate FiO2 07/08/17 18:28 98.2 93 18 108/71 98 Room Air 98.2 Sp02 EP Interpretation: reviewed, normal General Appearance: no apparent distress - however patient appears mildly disheveled Head: normocephalic, atraumatic Eyes: bilateral eye PERRL, bilateral eye EOMI ENT: hearing grossly normal, normal pharynx, TMs + canals normal, uvula midline Neck: full range of motion, supple, no meningismus, no bony tend Respiratory: lungs clear, normal breath sounds, no rhonchi, no respiratory distress, no retraction, no accessory muscle use Cardiovascular #1: normal peripheral pulses, regular rate, rhythm, no edema, no gallop, no JVD, no murmur Gastrointestinal: normal bowel sounds, non tender, soft, no mass, no organomegaly, non-distended, no guarding, no hernia, no pulsatile mass, no rebound Genitourinary: no CVA tenderness Musculoskeletal: normal inspection Neurologic: oriented x3, responsive, nurse prn III-XII nml as tested, motor strength/ tone normal, sensory intact Psychiatric: mood/affect normal Skin: warm/dry, palpation normal, other - appears sunburned Lymphatic: normal inspection, no adenopathy Medical Decision Making Diagnostic Impression: Primary Impression: ACS (acute coronary syndrome) ER Course Patient is a fairly complex patient with multiple differential to consideration including but not limited to cardiac cardiopulmonary and vascular emergencies Patient has a paced rhythm on the EKG Troponin is intermediate Patient's BNP is also elevated patient has known cardiac disease given the patient's risk factors and presentation x-ray showing some mild congestion as well patient provided with diuretics and requiring admission for further care Labs Test 07/08/17 18:51 07/08/17 18:59 White Blood Count 7.4 K/UL (4.8-10.8) Red Blood Count 4.09 M/UL (4.70-6.10) Hemoglobin 10.2 G/DL (14.2-18.0) Hematocrit 32.9 % (42.0-52.0) Mean Corpuscular Volume 81 FL (80-99) Mean Corpuscular Hemoglobin 25.0 PG (27.0-31.0) Mean Corpuscular Hemoglobin Concent 31.0 G/DL (32.0-36.0) Red Cell Distribution Width 18.0 % (11.6-14.8) Platelet Count 95 K/UL (150-450) Mean Platelet Volume 12.8 FL (6.5-10.1) Neutrophils (%) (Auto) % (45.0-75.0) Lymphocytes (%) (Auto) % (20.0-45.0) Monocytes (%) (Auto) % (1.0-10.0) Eosinophils (%) (Auto) % (0.0-3.0) Basophils (%) (Auto) % (0.0-2.0) Sodium Level 139 MMOL/L (136-145) Potassium Level 4.3 MMOL/L (3.5-5.1) Chloride Level 102 MMOL/L (98-107) Carbon Dioxide Level 29 MMOL/L (21-32) Anion Gap 8 mmol/L (5-15) Blood Urea Nitrogen 31 mg/dL (7-18) Creatinine 1.1 MG/DL (0.55-1.30) Estimat Glomerular Filtration Rate > 60 mL/min (>60) Glucose Level 103 MG/DL (74-106) Calcium Level 8.0 MG/DL (8.5-10.1) Total Bilirubin 0.7 MG/DL (0.2-1.0) Aspartate Amino Transf (AST/SGOT) 49 U/L (15-37) Alanine Aminotransferase (ALT/SGPT) 41 U/L (12-78) Alkaline Phosphatase 98 U/L (46-116) Total Creatine Kinase 143 U/L (26-308) Creatine Kinase MB 3.6 NG/ML (0.0-3.6) Creatine Kinase MB Relative Index 2.5 Troponin I 0.049 ng/mL (0.000-0.056) Pro-B-Type Natriuretic Peptide 7835 pg/mL (0-125) Total Protein 6.6 G/DL (6.4-8.2) Albumin 2.9 G/DL (3.4-5.0) Globulin 3.7 g/dL Albumin/Globulin Ratio 0.8 (1.0-2.7) Urine Opiates Screen Negative (NEGATIVE) Urine Barbiturates Screen Negative (NEGATIVE) Phencyclidine (PCP) Screen Negative (NEGATIVE) Urine Amphetamines Screen Negative (NEGATIVE) Urine Benzodiazepines Screen Negative (NEGATIVE) Urine Cocaine Screen Negative (NEGATIVE) Urine Marijuana (THC) Screen Positive (NEGATIVE) EKG Diagnostic Results Rate: other - 66 Rhythm: other - paced ST Segments: other - nonspecific ST and T-wave changes ASA given to the pt in ED: No - patient reports allergy Rhythm Strip Diag. Results EP Interpretation: yes Rate: paced 66 Rhythm: other - paced Chest X-Ray Diagnostic Results Chest X-Ray Diagnostic Results : Chest X-Ray Ordered: Yes # of Views/Limited/Complete: 1 View Indication: Chest Pain EP Interpretation: Yes Interpretation: no effusion, no pneumothorax, other - Cardiomegaly right lower lobe atelectasis mild congestion left lower lobe difficult to evaluate Impression: Other - CHF Electronically Signed by: Alton Mccall DO Last Vital Signs Date Time Temp Pulse Resp B/P (MAP) Pulse Ox O2 Delivery O2 Flow Rate FiO2 07/08/17 18:49 91 23 Room Air 07/08/17 18:28 98.2 108/71 98 98.2 Status: improved Disposition: ADMITTED INPATIENT Condition: Serious Scripts No Active Prescriptions or Reported Meds Referrals: NOT CHOSEN IPA/,REFERRING (PCP) Alton Mccall DO Jul 08, 2017 19:04
[2017-07-08 19:14] LABS: ANION GAP 8 mmol/L (5-15); BLOOD UREA NITROGEN 31 mg/dL (7-18); CARBON DIOXIDE 29 MMOL/L (21-32); CHLORIDE 102 MMOL/L (98-107); CREATININE 1.1 MG/DL (0.55-1.30); POTASSIUM 4.3 MMOL/L (3.5-5.1); SODIUM 139 MMOL/L (136-145)
[2017-07-08 19:27] LABS: ALANINE AMINOTRANSFERASE 41 U/L (12-78); ALBUMIN 2.9 G/DL (3.4-5.0); ALBUMIN/GLOBULIN RATIO 0.8 (1.0-2.7); ALKALINE PHOSPHATASE 98 U/L (46-116); ASPARTATE AMINO TRANSFERASE 49 U/L (15-37); BILIRUBIN,TOTAL 0.7 MG/DL (0.2-1.0); CKMB 3.6 NG/ML (0.0-3.6); CREATINE KINASE 143 U/L (26-308)
[2017-07-08 19:30] VITALS: BP 101/71
[2017-07-08] MEDS ORDERED: Morphine Sulfate 4mg/ml Inj IVP ONE (20:15)
[2017-07-08 20:30] VITALS: BP 128/74
[2017-07-08 21:30] VITALS: BP 132/74
[2017-07-08 22:05] VITALS: BP 132/74
--- NOTE | 2017-07-09 17:14 | Diagnostic Imaging Report ---
Indication: Chest pain Technique: XRAY Chest 1v Comparison:05/28/2017 Findings: Heart remains enlarged. A prosthetic aortic valve is noted. Sternal wires are present. There is a pacemaker. Pulmonary vascular redistribution is present. There is blunting of the right costophrenic angle. Interstitial disease is noted consistent with interstitial edema. Pacemaker is again noted. Impression: Cardiomegaly with congestive heart failure and right pleural effusion. Prosthetic aortic valve. Pacemaker.
== END 2017-07-08 22:05 | disposition other institution (70) ==
LOC: EDBD 18:32 → EMR 18:56
DX: I24.9 Acute ischemic heart disease, unspecified (principal); I50.9 Heart failure, unspecified; Z95.0 Presence of cardiac pacemaker; Z88.6 Allergy status to analgesic agent; Z95.2 Presence of prosthetic heart valve
CPT/HCPCS: 36415; 71045; 80053; 80307; 82550; 82553; 83880; 84484; 85007; 85025; 93005; 96374; 96375; 99284; J1885; J1940; J2270; J2405

== ENCOUNTER 2017-07-12 22:30 | Inpatient (IN) | payer MEDICAID ==
[~2017-07-12] VITALS: Ht 167.6 cm; Wt 59.0 kg
[2017-07-12] MEDS ORDERED: UNOBMED (22:39)
--- NOTE | 2017-07-12 22:51 | Emergency Room Report ---
History of Present Illness General Chief Complaint: Chest Pain Source: Patient Present Illness HPI 46-year-old male, history of open heart surgery with valve repair, with a pacemaker, p/w chest pain for one day. Localized to substernal area, no radiation to back or other areas, sharp in nature, got nitroglycerin by EMS which did not relieve the pain. Patient is allergic to aspirin + SOB. Denies palpitations, diaphoresis, n/v. Also states that his left inguinal hernia is out since this morning. Has passed gas. Last stool was yesterday Does not remember his last cardiac cath, states that the last time he was offered it he declined it at that time also states drank alcohol and smoked MJ today Allergies: Coded Allergies: ASPIRIN (Verified Allergy, Unknown, 01/28/17) SERTRALINE (Verified Allergy, Unknown, 01/28/17) Uncoded Allergies: ASPRIN (Allergy, Unknown, 05/27/17) Patient History Past Medical History: see triage record Past Surgical History: none Pertinent Family History: none Reviewed Nursing Documentation: PMH: Agreed; PSxH: Agreed Nursing Documentation-PMH Hx Pacemaker: Yes Hx Cancer: No Hx Gastrointestinal Problems: No Hx Neurological Problems: Yes Hx Seizures: Yes Review of Systems All Other Systems: negative except mentioned in HPI Physical Exam Vital Signs Date Time Temp Pulse Resp B/P (MAP) Pulse Ox O2 Delivery O2 Flow Rate FiO2 07/12/17 22:33 97.9 94 12 117/79 99 Room Air 97.9 Sp02 EP Interpretation: reviewed, normal General Appearance: alert, GCS 15, non-toxic, mild distress Head: normocephalic, atraumatic Eyes: bilateral eye normal inspection, bilateral eye PERRL, bilateral eye EOMI ENT: normal ENT inspection, normal pharynx, normal voice, moist mucus membranes Neck: normal inspection, full range of motion, supple Respiratory: normal inspection, lungs clear, normal breath sounds, no respiratory distress, no retraction, no wheezing, speaking full sentences, chest symmetrical Cardiovascular #1: regular rate, rhythm, other - PPM noted, substernal scar Cardiovascular #2: 2+ radial (R), 2+ radial (L) Gastrointestinal: normal inspection, non tender, soft, non-distended, no guarding Genitourinary: other - +scrotal and penile edema, soft but tender scrotum Musculoskeletal: normal inspection, back normal, normal range of motion, non- tender Neurologic: normal inspection, alert, oriented x3, responsive, motor strength/ tone normal, sensory intact, normal gait, speech normal Psychiatric: normal inspection, judgement/insight normal, memory normal Skin: normal inspection, normal color, no rash, warm/dry, well hydrated, normal turgor Medical Decision Making Diagnostic Impression: Primary Impression: ACS (acute coronary syndrome) Additional Impressions: NSTEMI (non-ST elevated myocardial infarction) Scrotal edema ER Course 46-year-old male p/w CP DDX: ACS vs. CHF vs. pneumonia vs. gastritis/GERD vs. pneumothorax Plan: IV access, obtain labs including troponin, EKG, CXR ER course: Upon evaluation of previous charts, patient has been here multiple times for chest pain, about 5 times within the last 3 months, he always leaves AGAINST MEDICAL ADVICE patient with scrotal and penile edema, do not believe this to be a strangulated hernia, it is soft, testes palpable but no bowel palpable, just generally edematous with also penis +elevated trop pt allergic to asa given morphine heparin Disposition: Admit to tele, DR Dr Augustine Please note that this Emergency Department Report was dictated using [email or web address] operator technology software, occasionally this can lead to erroneous entry secondary to interpretation by the dictation equipment. EKG Diagnostic Results EP Interpretation: Yes Rate: normal Rhythm: Paced rhythm ST Segments: No acute changes ASA given to patient: no Rhythm Strip EP Interpretation: Yes Rate: 98 Rhythm: NSR, no PVCs, no ectopy Chest X-ray CXR: Ordered: Yes 1 view Indication: Chest pain EP interpretation: Yes Interpretation: cardiomegaly, chf Impression: cardiomegaly, chf Electronically signed by Jenna Fair MD Laboratory Tests Test 07/12/17 23:00 07/12/17 23:40 07/12/17 23:50 White Blood Count 5.9 K/UL (4.8-10.8) Red Blood Count 3.80 M/UL (4.70-6.10) L Hemoglobin 9.4 G/DL (14.2-18.0) L Hematocrit 31.0 % (42.0-52.0) L Mean Corpuscular Volume 82 FL (80-99) Mean Corpuscular Hemoglobin 24.7 PG (27.0-31.0) L Mean Corpuscular Hemoglobin Concent 30.3 G/DL (32.0-36.0) L Red Cell Distribution Width 18.4 % (11.6-14.8) H Platelet Count 91 K/UL (150-450) L Mean Platelet Volume 13.5 FL (6.5-10.1) H Neutrophils (%) (Auto) % (45.0-75.0) Lymphocytes (%) (Auto) % (20.0-45.0) Monocytes (%) (Auto) % (1.0-10.0) Eosinophils (%) (Auto) % (0.0-3.0) Basophils (%) (Auto) % (0.0-2.0) Sodium Level 136 MMOL/L (136-145) Potassium Level 3.4 MMOL/L (3.5-5.1) L Chloride Level 99 MMOL/L (98-107) Carbon Dioxide Level 32 MMOL/L (21-32) Anion Gap 6 mmol/L (5-15) Blood Urea Nitrogen 30 mg/dL (7-18) H Creatinine 1.2 MG/DL (0.55-1.30) Estimate Glomerular Filtration Rate > 60 mL/min (>60) Glucose Level 102 MG/DL (74-106) Calcium Level 8.2 MG/DL (8.5-10.1) L Total Bilirubin 0.8 MG/DL (0.2-1.0) Aspartate Amino Transferase (AST) 54 U/L (15-37) H Alanine Aminotransferase (ALT) 38 U/L (12-78) Alkaline Phosphatase 98 U/L (46-116) Troponin I 0.125 ng/mL (0.000-0.056) Pro-B-Type Natriuretic Peptide 5330 pg/mL (0-125) H Total Protein 7.2 G/DL (6.4-8.2) Albumin 3.2 G/DL (3.4-5.0) L Globulin 4.0 g/dL Albumin/Globulin Ratio 0.8 (1.0-2.7) L Serum Alcohol 5 mg/dL Prothrombin Time Pending Prothrombin Time INR Pending PTT Pending Urine Color Yellow Urine Appearance Clear Urine pH 5 (4.5-8.0) Urine Specific [place] 1.025 (1.005-1.035) Urine Protein 3+ (NEGATIVE) H Urine Glucose (UA) Negative (NEGATIVE) Urine Ketones 1+ (NEGATIVE) H Urine Occult Blood 3+ (NEGATIVE) H Urine Nitrite Negative (NEGATIVE) Urine Bilirubin Negative (NEGATIVE) Urine Urobilinogen 4 MG/DL (0.0-1.0) H Urine Leukocyte Esterase 1+ (NEGATIVE) H Urine RBC 5-10 /HPF (0 - 0) H Urine WBC 0-2 /HPF (0 - 0) Urine Squamous Epithelial Cells Few /LPF (NONE/OCC) Urine Bacteria Few /HPF (NONE) Urine Opiates Screen Negative (NEGATIVE) Urine Barbiturates Screen Negative (NEGATIVE) Phencyclidine (PCP) Screen Negative (NEGATIVE) Urine Amphetamines Screen Positive (NEGATIVE) H Urine Benzodiazepines Screen Negative (NEGATIVE) Urine Cocaine Screen Positive (NEGATIVE) H Urine Marijuana (THC) Screen Positive (NEGATIVE) H Last Vital Signs Date Time Temp Pulse Resp B/P (MAP) Pulse Ox O2 Delivery O2 Flow Rate FiO2 07/12/17 22:33 97.9 94 12 117/79 99 Room Air 97.9 Disposition: ADMITTED INPATIENT Condition: Serious Jenna Fair M.D. Jul 12, 2017 22:51
[2017-07-12 23:10] VITALS: BP 120/79
[2017-07-12 23:20] LABS: HEMOGLOBIN 9.4 G/DL (14.2-18.0); MEAN CORPUSCULAR VOLUME 82 FL (80-99); PLATELET COUNT 91 K/UL (150-450); RED CELL DISTRIBUTION WIDTH 18.4 % (11.6-14.8); WHITE BLOOD COUNT 5.9 K/UL (4.8-10.8)
[2017-07-12 23:37] LABS: ANION GAP 6 mmol/L (5-15); BLOOD UREA NITROGEN 30 mg/dL (7-18); CALCIUM 8.2 MG/DL (8.5-10.1); CARBON DIOXIDE 32 MMOL/L (21-32); CHLORIDE 99 MMOL/L (98-107); CREATININE 1.2 MG/DL (0.55-1.30); POTASSIUM 3.4 MMOL/L (3.5-5.1); SODIUM 136 MMOL/L (136-145)
[2017-07-12 23:48] LABS: ALANINE AMINOTRANSFERASE 38 U/L (12-78); ALBUMIN 3.2 G/DL (3.4-5.0); ALBUMIN/GLOBULIN RATIO 0.8 (1.0-2.7); ALKALINE PHOSPHATASE 98 U/L (46-116); ASPARTATE AMINO TRANSFERASE 54 U/L (15-37); BILIRUBIN,TOTAL 0.8 MG/DL (0.2-1.0)
[2017-07-12 23:59] LABS: APPEARANCE,URINE CLEAR; BILIRUBIN, URINE NEGATIVE (NEGATIVE); GLUCOSE, URINE (UA) NEGATIVE (NEGATIVE); KETONES,URINE 1+ (NEGATIVE); LEUKOCYTE ESTERASE ,URINE 1+ (NEGATIVE); NITRITE,URINE NEGATIVE (NEGATIVE); PH,URINE 5 (4.5-8.0); PROTEIN,URINE 3+ (NEGATIVE); UROBILINOGEN,URINE 4 MG/DL (0.0-1.0)
[2017-07-13 00:08] LABS: COLOR,URINE YELLOW
[2017-07-13] MEDS ORDERED: Heparin 5000 units/ml inj IV ONE ×2 (01:00→03:30)
[2017-07-13] MEDS ORDERED: Heparin 25,000u/D5W 500ml 500 ML IV SCH ×2 (01:00→03:30)
[2017-07-13] MEDS ORDERED: Morphine Sulfate 4mg/ml Inj IVP ONE ×3 (01:15→22:00)
[2017-07-13 01:18] LABS: INR 1.2 (0.9-1.1)
[2017-07-13 01:19] VITALS: BP 124/77
[2017-07-13 02:24] VITALS: BP 119/90
[2017-07-13] MEDS ORDERED: Nitroglycerin Subl 0.4mg tab SL PRN (03:30)
[2017-07-13 04:00] VITALS: BP 160/81
[2017-07-13] MEDS: Morphine Sulfate 4mg/ml Inj IVP PRN ×2 (06:43→15:08)
[2017-07-13 08:00] VITALS: BP 127/85
[2017-07-13 12:00] VITALS: BP 114/84
--- NOTE | 2017-07-13 12:43 | Cardiology Report ---
APPROVED REPORT EKG Measurement Heart [id number] Sinus rhythm V-paced rhythm
--- NOTE | 2017-07-13 12:56 | Cardiology Progress Note ---
Assessment/Plan Assessment/Plan The patient is seen and examined, full consult note will be dictated. Objective Last 24 Hour Vital Signs Date Time Temp Pulse Resp B/P (MAP) Pulse Ox O2 Delivery O2 Flow Rate FiO2 07/13/17 07:13 97.0 07/13/17 06:43 97.0 07/13/17 04:00 91 07/13/17 04:00 97.0 68 22 160/81 99 Nasal Cannula 2.0 97.0 07/13/17 02:55 98.0 94 20 119/90 99 Room Air 98.0 07/13/17 02:35 98.0 07/13/17 02:24 98.0 94 20 119/90 99 Room Air 98.0 07/13/17 01:19 97.9 96 16 124/77 99 Room Air 97.9 07/13/17 01:17 97.9 07/13/17 00:24 97.9 07/12/17 23:54 97.9 07/12/17 23:10 97.9 104 16 120/79 99 Room Air 97.9 07/12/17 23:05 140 18 Room Air 07/12/17 22:33 97.9 94 12 117/79 99 Room Air 97.9 Intake and Output 07/12/17 07/13/17 19:00 07:00 Intake Total 200 ml Output Total 0 ml Balance 200 ml Intake Oral 200 ml Output Urine Total 0 ml Laboratory Tests Test 07/12/17 23:00 07/12/17 23:40 07/12/17 23:50 White Blood Count 5.9 K/UL (4.8-10.8) Red Blood Count 3.80 M/UL (4.70-6.10) L Hemoglobin 9.4 G/DL (14.2-18.0) L Hematocrit 31.0 % (42.0-52.0) L Mean Corpuscular Volume 82 FL (80-99) Mean Corpuscular Hemoglobin 24.7 PG (27.0-31.0) L Mean Corpuscular Hemoglobin Concent 30.3 G/DL (32.0-36.0) L Red Cell Distribution Width 18.4 % (11.6-14.8) H Platelet Count 91 K/UL (150-450) L Mean Platelet Volume 13.5 FL (6.5-10.1) H Neutrophils (%) (Auto) % (45.0-75.0) Lymphocytes (%) (Auto) % (20.0-45.0) Monocytes (%) (Auto) % (1.0-10.0) Eosinophils (%) (Auto) % (0.0-3.0) Basophils (%) (Auto) % (0.0-2.0) Sodium Level 136 MMOL/L (136-145) Potassium Level 3.4 MMOL/L (3.5-5.1) L Chloride Level 99 MMOL/L (98-107) Carbon Dioxide Level 32 MMOL/L (21-32) Anion Gap 6 mmol/L (5-15) Blood Urea Nitrogen 30 mg/dL (7-18) H Creatinine 1.2 MG/DL (0.55-1.30) Estimat Glomerular Filtration Rate > 60 mL/min (>60) Glucose Level 102 MG/DL (74-106) Calcium Level 8.2 MG/DL (8.5-10.1) L Total Bilirubin 0.8 MG/DL (0.2-1.0) Aspartate Amino Transf (AST/SGOT) 54 U/L (15-37) H Alanine Aminotransferase (ALT/SGPT) 38 U/L (12-78) Alkaline Phosphatase 98 U/L (46-116) Troponin I 0.125 ng/mL (0.000-0.056) Pro-B-Type Natriuretic Peptide 5330 pg/mL (0-125) H Total Protein 7.2 G/DL (6.4-8.2) Albumin 3.2 G/DL (3.4-5.0) L Globulin 4.0 g/dL Albumin/Globulin Ratio 0.8 (1.0-2.7) L Serum Alcohol 5 mg/dL Prothrombin Time 13.1 SEC (9.30-11.50) H Prothromb Time International Ratio 1.2 (0.9-1.1) H Activated Partial Thromboplast Time 27 SEC (23-33) Urine Color Yellow Urine Appearance Clear Urine pH 5 (4.5-8.0) Urine Specific [place] 1.025 (1.005-1.035) Urine Protein 3+ (NEGATIVE) H Urine Glucose (UA) Negative (NEGATIVE) Urine Ketones 1+ (NEGATIVE) H Urine Occult Blood 3+ (NEGATIVE) H Urine Nitrite Negative (NEGATIVE) Urine Bilirubin Negative (NEGATIVE) Urine Urobilinogen 4 MG/DL (0.0-1.0) H Urine Leukocyte Esterase 1+ (NEGATIVE) H Urine RBC 5-10 /HPF (0 - 0) H Urine WBC 0-2 /HPF (0 - 0) Urine Squamous Epithelial Cells Few /LPF (NONE/OCC) Urine Bacteria Few /HPF (NONE) Urine Opiates Screen Negative (NEGATIVE) Urine Barbiturates Screen Negative (NEGATIVE) Phencyclidine (PCP) Screen Negative (NEGATIVE) Urine Amphetamines Screen Positive (NEGATIVE) H Urine Benzodiazepines Screen Negative (NEGATIVE) Urine Cocaine Screen Positive (NEGATIVE) H Urine Marijuana (THC) Screen Positive (NEGATIVE) H NGUYỄN JOE Jul 13, 2017 12:56
--- NOTE | 2017-07-13 12:58 | History & Physical ---
History and Physical History & Physicial seen and examined. Dictation completed Lala Augustine MD Jul 13, 2017 12:58
--- NOTE | 2017-07-13 16:13 | Diagnostic Imaging Report ---
Indication: Chest pain Technique: XRAY Chest 1v Comparison: 07/08/2017 Findings: Stable cardiomegaly. Prosthetic cardiac valve prior median sternotomy again noted. There is haziness of the pulmonary vascularity suggesting mild interstitial edema/fluid overload. There is trace right pleural effusion and patchy right basilar opacity. No pneumothorax. No acute osseous abnormality seen. Pacemaker unchanged. Impression: Primarily and findings suggestive of mild interstitial edema. Clinical correlation and follow-up exam recommended.
[2017-07-13 20:03] VITALS: BP 125/75
[2017-07-13 20:21] LABS: HEMATOCRIT 32.9 % (42.0-52.0); HEMOGLOBIN 9.9 G/DL (14.2-18.0); MEAN CORPUSCULAR VOLUME 82 FL (80-99); PLATELET COUNT 92 K/UL (150-450); RED BLOOD COUNT 4.03 M/UL (4.70-6.10); RED CELL DISTRIBUTION WIDTH 18.5 % (11.6-14.8)
[2017-07-13 20:47] LABS: ALANINE AMINOTRANSFERASE 42 U/L (12-78); ALBUMIN 3.5 G/DL (3.4-5.0); ALBUMIN/GLOBULIN RATIO 0.9 (1.0-2.7); ALKALINE PHOSPHATASE 104 U/L (46-116); ANION GAP 6 mmol/L (5-15); ASPARTATE AMINO TRANSFERASE 57 U/L (15-37); BILIRUBIN,TOTAL 0.9 MG/DL (0.2-1.0); BLOOD UREA NITROGEN 33 mg/dL (7-18); CARBON DIOXIDE 30 MMOL/L (21-32); CHLORIDE 98 MMOL/L (98-107); CHOLESTEROL 118 MG/DL (< 200); CREATININE 1.3 MG/DL (0.55-1.30); HDL CHOLESTEROL 39 MG/DL (40-60); SODIUM 134 MMOL/L (136-145); TRIGLYCERIDES 87 MG/DL (30-150)
[2017-07-13 20:50] LABS: FERRITIN 15 NG/ML (8-388); LACTATE DEHYDROGENASE 396 U/L (81-234)
[2017-07-13 20:59] LABS: INR 1.2 (0.9-1.1)
[2017-07-13] MEDS ORDERED: Atorvastatin 20mg tab ORAL SCH ×2 (21:00)
[2017-07-13 21:02] LABS: % IRON SATURATION 4 % (15-50); IRON 16 ug/dL (50-175); TOTAL IRON BINDING CAPACITY 401 ug/dL (250-450)
[2017-07-13] MEDS ORDERED: Ketorolac 30mg Inj IV PRN (21:30)
--- NOTE | 2017-07-13 23:21 | Consultation ---
History of Present Illness General Date patient seen: Jul 13, 2017 Chief Complaint: Chest Pain Present Illness HPI 46-year-old homeless white male. The patient presented with chest pain. the pt was abusive and was uncooperative. no si hi. Allergies: Coded Allergies: ASPIRIN (Verified Allergy, Unknown, 01/28/17) SERTRALINE (Verified Allergy, Unknown, 01/28/17) Medication History Miscellaneous Medications Unable to Obtain Medications (Unable To Obtain Meds), (Reported) Patient History Limited by: medical condition History Provided By: Patient, Medical Record, PMD Healthcare decision maker Resuscitation status Full Code Advanced Directive on File Past Medical/Surgical History Past Medical/Surgical History: (1) Noncompliance with medication regimen (2) Chest pain (3) ACS (acute coronary syndrome) Review of Systems Psychiatric: Reports: prior hx, anxiety, depressed feelings, emotional problems Physical Exam General Appearance: no apparent distress, alert Neurologic: oriented x 3, responsive, depressed affect Last 24 Hour Vital Signs Date Time Temp Pulse Resp B/P (MAP) Pulse Ox O2 Delivery O2 Flow Rate FiO2 07/13/17 22:28 97.5 07/13/17 21:56 97.5 07/13/17 20:03 97.5 88 20 125/75 96 Nasal Cannula 2.0 97.5 07/13/17 16:08 98.2 07/13/17 16:00 97 07/13/17 15:09 95 114/84 07/13/17 15:08 98.2 07/13/17 12:00 98.2 95 21 114/84 99 Nasal Cannula 2.0 98.2 07/13/17 08:00 97.9 85 20 127/85 96 Nasal Cannula 2.0 97.9 07/13/17 08:00 83 07/13/17 06:43 97.0 07/13/17 04:00 91 07/13/17 04:00 97.0 68 22 160/81 99 Nasal Cannula 2.0 97.0 07/13/17 02:55 98.0 94 20 119/90 99 Room Air 98.0 07/13/17 02:35 98.0 07/13/17 02:24 98.0 94 20 119/90 99 Room Air 98.0 07/13/17 01:19 97.9 96 16 124/77 99 Room Air 97.9 07/13/17 01:17 97.9 07/13/17 00:24 97.9 07/12/17 23:54 97.9 Intake and Output 07/12/17 07/13/17 19:00 07:00 Intake Total 200 ml Output Total 0 ml Balance 200 ml Intake Oral 200 ml Output Urine Total 0 ml Laboratory Tests Test 07/12/17 23:40 07/12/17 23:50 07/13/17 19:48 Prothrombin Time 13.1 SEC (9.30-11.50) H 12.8 SEC (9.30-11.50) H Prothromb Time International Ratio 1.2 (0.9-1.1) H 1.2 (0.9-1.1) H Activated Partial Thromboplast Time 27 SEC (23-33) 27 SEC (23-33) Urine Color Yellow Urine Appearance Clear Urine pH 5 (4.5-8.0) Urine Specific [place] 1.025 (1.005-1.035) Urine Protein 3+ (NEGATIVE) H Urine Glucose (UA) Negative (NEGATIVE) Urine Ketones 1+ (NEGATIVE) H Urine Occult Blood 3+ (NEGATIVE) H Urine Nitrite Negative (NEGATIVE) Urine Bilirubin Negative (NEGATIVE) Urine Urobilinogen 4 MG/DL (0.0-1.0) H Urine Leukocyte Esterase 1+ (NEGATIVE) H Urine RBC 5-10 /HPF (0 - 0) H Urine WBC 0-2 /HPF (0 - 0) Urine Squamous Epithelial Cells Few /LPF (NONE/OCC) Urine Bacteria Few /HPF (NONE) Urine Opiates Screen Negative (NEGATIVE) Urine Barbiturates Screen Negative (NEGATIVE) Phencyclidine (PCP) Screen Negative (NEGATIVE) Urine Amphetamines Screen Positive (NEGATIVE) H Urine Benzodiazepines Screen Negative (NEGATIVE) Urine Cocaine Screen Positive (NEGATIVE) H Urine Marijuana (THC) Screen Positive (NEGATIVE) H White Blood Count 5.0 K/UL (4.8-10.8) Red Blood Count 4.03 M/UL (4.70-6.10) L Hemoglobin 9.9 G/DL (14.2-18.0) L Hematocrit 32.9 % (42.0-52.0) L Mean Corpuscular Volume 82 FL (80-99) Mean Corpuscular Hemoglobin 24.6 PG (27.0-31.0) L Mean Corpuscular Hemoglobin Concent 30.1 G/DL (32.0-36.0) L Red Cell Distribution Width 18.5 % (11.6-14.8) H Platelet Count 92 K/UL (150-450) L Mean Platelet Volume 13.3 FL (6.5-10.1) H Neutrophils (%) (Auto) % (45.0-75.0) Lymphocytes (%) (Auto) % (20.0-45.0) Monocytes (%) (Auto) % (1.0-10.0) Eosinophils (%) (Auto) % (0.0-3.0) Basophils (%) (Auto) % (0.0-2.0) Differential Total Cells Counted 100 Neutrophils % (Manual) 72 % (45-75) Lymphocytes % (Manual) 16 % (20-45) L Monocytes % (Manual) 8 % (1-10) Eosinophils % (Manual) 1 % (0-3) Basophils % (Manual) 2 % (0-2) Band Neutrophils 1 % (0-8) Platelet Estimate Decreased L Platelet Morphology Normal Polychromasia 1+ Hypochromasia 3+ Anisocytosis 2+ Microcytosis 1+ Sodium Level 134 MMOL/L (136-145) L Potassium Level 4.0 MMOL/L (3.5-5.1) Chloride Level 98 MMOL/L (98-107) Carbon Dioxide Level 30 MMOL/L (21-32) Anion Gap 6 mmol/L (5-15) Blood Urea Nitrogen 33 mg/dL (7-18) H Creatinine 1.3 MG/DL (0.55-1.30) Estimat Glomerular Filtration Rate 59.7 mL/min (>60) Glucose Level 97 MG/DL (74-106) Hemoglobin A1c 6.9 % (4.3-6.0) H Calcium Level 8.0 MG/DL (8.5-10.1) L Iron Level 16 ug/dL (50-175) L Total Iron Binding Capacity 401 ug/dL (250-450) Percent Iron Saturation 4 % (15-50) L Unsaturated Iron Binding 385 ug/dL (112-346) H Ferritin 15 NG/ML (8-388) Total Bilirubin 0.9 MG/DL (0.2-1.0) Aspartate Amino Transf (AST/SGOT) 57 U/L (15-37) H Alanine Aminotransferase (ALT/SGPT) 42 U/L (12-78) Alkaline Phosphatase 104 U/L (46-116) Lactate Dehydrogenase 396 U/L (81-234) H Troponin I 0.138 ng/mL (0.000-0.056) Total Protein 7.5 G/DL (6.4-8.2) Albumin 3.5 G/DL (3.4-5.0) Globulin 4.0 g/dL Albumin/Globulin Ratio 0.9 (1.0-2.7) L Triglycerides Level 87 MG/DL (30-150) Cholesterol Level 118 MG/DL (< 200) LDL Cholesterol 70 mg/dL (<100) HDL Cholesterol 39 MG/DL (40-60) L Cholesterol/HDL Ratio 3.0 (3.3-4.4) L Vitamin B12 Level 1253 PG/ML (193-986) H Folate 16.4 NG/ML (8.6-58.9) Thyroid Stimulating Hormone (TSH) 7.671 uiU/mL (0.358-3.740) Height (Feet): 5 Height (Inches): 6.00 Weight (Pounds): 130 Medications Current Medications Medications (Trade) Dose Ordered Sig/Felicia Route PRN Reason Start Time Stop Time Status Last Admin Dose Admin Acetaminophen (Tylenol) 650 mg Q4H PRN ORAL Mild Pain/Temp > 100.5 07/13/17 03:30 08/12/17 03:29 Atorvastatin Calcium (Lipitor) 20 mg BEDTIME ORAL 07/13/17 21:00 08/12/17 20:59 Furosemide (Lasix) 40 mg DAILY IV 07/13/17 14:00 08/12/17 13:59 07/13/17 15:09 Morphine Sulfate (Morphine Sulfate) 3 mg Q8H PRN IVP Severe Pain (Pain Scale 7-10) 07/13/17 03:30 07/20/17 03:29 07/13/17 15:08 Nifedipine (Procardia XL) 30 mg DAILY ORAL 07/13/17 14:00 08/12/17 13:59 07/13/17 15:09 Nitroglycerin (Ntg) 0.4 mg Q5M PRN SL Prn Chest Pain 07/13/17 03:30 08/12/17 03:29 Pantoprazole (Protonix) 40 mg ACBREAKFAST ORAL 07/13/17 06:30 08/12/17 06:29 07/13/17 05:56 Assessment/Plan Assessment/Plan substance use d/o depression cont Nicolette Noonan M.D. Jul 13, 2017 23:21
[2017-07-14] VITALS: BP 99/70
[2017-07-14] MEDS: Morphine Sulfate 4mg/ml Inj IVP PRN ×2 (01:37→11:52)
--- NOTE | 2017-07-14 02:45 | History and Physical Report ---
DATE OF ADMISSION: 07/13/2017 SOURCE OF INFORMATION: The patient and EMR. HISTORY OF PRESENT ILLNESS: The patient is a 46-year-old homeless white male. The patient presented with chest pain. The patient reported the pain started in the precordial area with radiation to both shoulders. The patient denies any loss of consciousness. The patient also complaining of worsening of the swelling in the penis and scrotal area and the lower extremity for the last 1 or 2 weeks. REVIEW OF SYSTEMS: All 12 elements of review of systems reviewed, pertinent positive and negative as above. PAST SURGICAL HISTORY: Open heart surgery, pacemaker placement. Detailed information unavailable. MEDICATIONS: Current hospital medications including but not limited to Protonix 40 mg daily, Lipitor 20 mg daily, and sublingual nitroglycerin. ALLERGIES: Aspirin and sertraline. FAMILY HISTORY: Reviewed and noncontributory. SOCIAL HISTORY: The patient is homeless. Positive for the illicit drug abuse, cocaine, marijuana, alcohol abuse. PHYSICAL EXAMINATION: VITAL SIGNS: Blood pressure pressure 120/70, temperature 98.2, pulse oximetry 98% on room, respiratory rate 18, temperature 98.2. HEAD AND NECK: Atraumatic and normocephalic. CHEST: Clear to auscultation. HEART: S1 and S2. Regular rate and rhythm. Positive for inconclusive for audible S3 or S4. ABDOMEN: Soft. No organomegaly. MUSCULOSKELETAL: Positive for 2+ pitting edema in the lower extremities. Positive for scrotal edema. NEUROLOGIC: The patient is awake, alert and oriented times 2-3 x3. PSYCHIATRIC: Mood and affect is anxious. LABORATORY DATA: Labs dated for July 12, 2017 shows WBC 5.9, hemoglobin 9.4, and platelets of 91. Sodium 136, potassium 3.4, BUN 30, creatinine 1.2. AST 54. Troponin 0.12. BNP 5300. Urinalysis is positive for 3+ protein. Urine drug screen is positive for amphetamine, marijuana, and cocaine. ASSESSMENT AND PLAN: 1. Acute coronary syndrome - non-ST [place]. 2. CHF exacerbation. 3. Anasarca. 4. Noncompliance with medications. INCOMPLETE DICTATION Lala Augustine M.D. DR: Stephanie JOB#: [id number] CC:
--- NOTE | 2017-07-14 08:30 | Consultation ---
DATE OF CONSULTATION: 07/13/2017 HEMATOLOGY/ONCOLOGY CONSULTATION CONSULTING PHYSICIAN: Christo Loco M.D. REFERRING PHYSICIAN: Lala Augustine M.D. REASON FOR CONSULTATION: Evaluation of anemia and thrombocytopenia. IDENTIFYING DATA: Dear Dr. Augustine, The patient is a pleasant, 46-year-old male with past medical history significant for alcohol abuse, marijuana abuse as well, history of open heart surgery, mitral valve repair, and pacemaker placement, presents with some chest pain, localized to substernal area. No radiation noted. Family EMS. The patient is allergic to aspirin. Denies any palpitations. No hematochezia or hematemesis. No history of other malignancies. left inguinal hernia repair noted. Last time, he had a cardiac catheterization, noted to be anemic. Has leukopenia, anemia with thrombocytopenia. Hematology Service consulted for further evaluation and treatment. PAST MEDICAL HISTORY: Alcohol abuse, chest pain, pacemaker placement, and open heart surgery. PAST SURGICAL HISTORY: As above. MEDICATIONS: Nifedipine, Lipitor, morphine, pantoprazole, nitroglycerin, and Tylenol. ALLERGIES: Aspirin and sertraline. FAMILY HISTORY: Noncontributory. REVIEW OF SYSTEMS: CONSTITUTIONAL: Chest pain noted. SKIN: No rashes, bumps, or itching. HEENT: No headache, hearing or vision changes. BREASTS: No lumps, pain, or discharge. PULMONARY: No cough, sputum, or shortness of breath. GASTROINTESTINAL: No nausea, vomiting, or diarrhea. GENITOURINARY: No dysuria, frequency, or urgency. MUSCULOSKELETAL: No joint swelling, muscle pain, or trauma. PHYSICAL EXAMINATION: VITAL SIGNS: Reviewed. GENERAL: No distress. PULMONARY: Decreased breath sounds. CARDIOVASCULAR: Regular rate. No S3 or S4. ABDOMEN: Soft, nontender, and nondistended. EXTREMITIES: No cyanosis, swelling, or edema. LABORATORY DATA: WBC of 5.9, hemoglobin 11.5, hematocrit 31, and platelet count 91,000. INR of 1.2. Chemistry, BUN of 30 and creatinine 1.8. ASSESSMENT AND RECOMMENDATIONS: 1. Thrombocytopenia, likely secondary to underlying liver cirrhosis. The patient with persistent alcohol abuse, has pulmonary hypertension as well artery. 2. Anemia due to underlying chronic disease. Continue to closely monitor for improvement. Consider anemia panel. 3. Acute coronary syndrome, on heparin drip, which has been discontinued due to underlying thrombocytopenia and has been seen by Cardiology Service. In case of extreme emergency, can restart heparin drip as platelet count has been persistently 80,000 to 150,000. 4. Coagulopathy due to underlying alcohol abuse, myelosuppression. Continue to closely monitor. 5. Chest pain, open heart surgery history, he is high risk, refusing 2D echo. 6. Noncompliance, has followed up multiple times in the past. 7. Non-ST segment elevation myocardial infarction. 8. Left testicular pain. I appreciate the consultation. Christo Loco M.D. DR: [place] JOB#: [id number] CC:
[2017-07-14] MEDS ORDERED: Depakote 500mg tab ORAL SCH (09:00)
--- NOTE | 2017-07-14 10:20 | General Progress Note ---
Assessment/Plan Status: unchanged Assessment/Plan 1. Acute coronary syndrome - non-ST [place]. 2. CHF exacerbation. 3. Anasarca. 4. Noncompliance with medications. 5. Liver Cirhosis- ETOH 6. PS Abuse 7. Non-compliant with medications 8. Diffuse Anasarca 9. Thrombocytopenia Plan: raising levels of Troponin Inguinal pain, Pending CT to assess Subjective ROS Limited/Unobtainable: No Constitutional: Reports: malaise - diffuse pain. complains of persistent chest pain. Cardiovascular: Reports: chest pain Respiratory: Reports: no symptoms Allergies: Coded Allergies: ASPIRIN (Verified Allergy, Unknown, 01/28/17) SERTRALINE (Verified Allergy, Unknown, 01/28/17) Objective Last 24 Hour Vital Signs Date Time Temp Pulse Resp B/P (MAP) Pulse Ox O2 Delivery O2 Flow Rate FiO2 07/14/17 02:07 98.7 07/14/17 01:37 98.7 07/14/17 00:00 98.7 91 21 99/70 88 Room Air 98.7 07/13/17 22:28 97.5 07/13/17 21:56 97.5 07/13/17 20:03 97.5 88 20 125/75 96 Nasal Cannula 2.0 97.5 07/13/17 16:00 97 07/13/17 15:09 95 114/84 07/13/17 15:08 98.2 07/13/17 12:00 98.2 95 21 114/84 99 Nasal Cannula 2.0 98.2 Intake and Output 07/13/17 07/14/17 19:00 07:00 Intake Total 1000 ml Output Total 650 ml Balance 1000 ml -650 ml Intake Oral 1000 ml Output Urine Total 650 ml # Voids 4 Laboratory Tests 07/13/17 19:48: White Blood Count 5.0, Red Blood Count 4.03L, Hemoglobin 9.9L, Hematocrit 32.9L , Mean Corpuscular Volume 82, Mean Corpuscular Hemoglobin 24.6L, Mean Corpuscular Hemoglobin Concent 30.1L, Red Cell Distribution Width 18.5H, Platelet Count 92L, Mean Platelet Volume 13.3H, Neutrophils (%) (Auto) , Lymphocytes (%) (Auto) , Monocytes (%) (Auto) , Eosinophils (%) (Auto) , Basophils (%) (Auto) , Differential Total Cells Counted 100, Neutrophils % ( Manual) 72, Lymphocytes % (Manual) 16L, Monocytes % (Manual) 8, Eosinophils % ( Manual) 1, Basophils % (Manual) 2, Band Neutrophils 1, Platelet Estimate DecreasedL, Platelet Morphology Normal, Polychromasia 1+, Hypochromasia 3+, Anisocytosis 2+, Microcytosis 1+, Prothrombin Time 12.8H, Prothromb Time International Ratio 1.2H, Activated Partial Thromboplast Time 27, Sodium Level 134L, Potassium Level 4.0, Chloride Level 98, Carbon Dioxide Level 30, Anion Gap 6, Blood Urea Nitrogen 33H, Creatinine 1.3, Estimat Glomerular Filtration Rate 59.7, Glucose Level 97, Hemoglobin A1c 6.9H, Calcium Level 8.0L, Iron Level 16L, Total Iron Binding Capacity 401, Percent Iron Saturation 4L, Unsaturated Iron Binding 385H, Ferritin 15, Total Bilirubin 0.9, Aspartate Amino Transf (AST/SGOT) 57H, Alanine Aminotransferase (ALT/SGPT) 42, Alkaline Phosphatase 104, Lactate Dehydrogenase 396H, Troponin I 0.138H, Total Protein 7.5, Albumin 3.5, Globulin 4.0, Albumin/Globulin Ratio 0.9L, Triglycerides Level 87, Cholesterol Level 118, LDL Cholesterol 70, HDL Cholesterol 39L, Cholesterol/HDL Ratio 3.0L, Vitamin B12 Level 1253H, Folate 16.4, Thyroid Stimulating Hormone (TSH) 7.671H Height (Feet): 5 Height (Inches): 6.00 Weight (Pounds): 130 Abdomen: other - given the anasarca, examination of inguinal area is limited Genitourinary/Rectal: other - Diffue anasarca, involving the scrotum and inguinal area Extremities: other - anasarca Edema: 3+ Leg (R), 3+ Pedal (L), 3+ Pedal (R), 3+ 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
--- NOTE | 2017-07-14 12:35 | Wound Care Consultation ---
Wound Assessment Wound Assessment : Wound Number: 1 Wound Present on Admission: Yes New Wound: No Status Change of Wound: No Wound Location Body Site: perineal area Wound Type: erosion Ivory Test: Does not Ivory Wound Thickness: Partial Thickness Wound Length: 4.5 Wound Width: 3.5 Percent of Wound [place]/Red: 100 Wound Drainage Amount: None Wound Drainage Odor: None/Absent Tissue Surrounding Wound: Erythemic Wound General Appearance: Reddened Wound Comment #1 Perineal area partial thickness erosion Recommendation -Local wound care per protocol -Keep clean and dry -Turn and reposition -Optimize nutrition -Assess and f/u accordingly for any changes CAITLIN DODD RN Jul 14, 2017 12:35
--- NOTE | 2017-07-14 17:44 | Cardiology Progress Note ---
Assessment/Plan Assessment/Plan 1. Atypical chest pain with SOB most likely due to acute heart failure, continue diuretics, ? NSTEMI vs myocarditis due to polysubstance abuse, awaiting echocardiography to proceed with the precise treatment. NOt a candidate for ischemic work-up or cath in view of polysubstance abuse and compliance issue. 2. Possible aortic valve replacement per CXR findings. 3. s/p dual chamber pacemaker implantation, currently SR with V-paced rhythm. Subjective Subjective Sinus rhythm at 91 with ventricular paced. Objective Last 24 Hour Vital Signs Date Time Temp Pulse Resp B/P (MAP) Pulse Ox O2 Delivery O2 Flow Rate FiO2 07/14/17 12:22 98.7 07/14/17 11:52 98.7 07/14/17 01:37 98.7 07/14/17 00:00 98.7 91 21 99/70 88 Room Air 98.7 07/13/17 22:28 97.5 07/13/17 21:56 97.5 07/13/17 20:03 97.5 88 20 125/75 96 Nasal Cannula 2.0 97.5 Intake and Output 07/13/17 07/14/17 19:00 07:00 Intake Total 1000 ml Output Total 650 ml Balance 1000 ml -650 ml Intake Oral 1000 ml Output Urine Total 650 ml # Voids 4 2D Echo: Pending Laboratory Tests Test 07/13/17 19:48 White Blood Count 5.0 K/UL (4.8-10.8) Red Blood Count 4.03 M/UL (4.70-6.10) L Hemoglobin 9.9 G/DL (14.2-18.0) L Hematocrit 32.9 % (42.0-52.0) L Mean Corpuscular Volume 82 FL (80-99) Mean Corpuscular Hemoglobin 24.6 PG (27.0-31.0) L Mean Corpuscular Hemoglobin Concent 30.1 G/DL (32.0-36.0) L Red Cell Distribution Width 18.5 % (11.6-14.8) H Platelet Count 92 K/UL (150-450) L Mean Platelet Volume 13.3 FL (6.5-10.1) H Neutrophils (%) (Auto) % (45.0-75.0) Lymphocytes (%) (Auto) % (20.0-45.0) Monocytes (%) (Auto) % (1.0-10.0) Eosinophils (%) (Auto) % (0.0-3.0) Basophils (%) (Auto) % (0.0-2.0) Differential Total Cells Counted 100 Neutrophils % (Manual) 72 % (45-75) Lymphocytes % (Manual) 16 % (20-45) L Monocytes % (Manual) 8 % (1-10) Eosinophils % (Manual) 1 % (0-3) Basophils % (Manual) 2 % (0-2) Band Neutrophils 1 % (0-8) Platelet Estimate Decreased L Platelet Morphology Normal Polychromasia 1+ Hypochromasia 3+ Anisocytosis 2+ Microcytosis 1+ Prothrombin Time 12.8 SEC (9.30-11.50) H Prothromb Time International Ratio 1.2 (0.9-1.1) H Activated Partial Thromboplast Time 27 SEC (23-33) Sodium Level 134 MMOL/L (136-145) L Potassium Level 4.0 MMOL/L (3.5-5.1) Chloride Level 98 MMOL/L (98-107) Carbon Dioxide Level 30 MMOL/L (21-32) Anion Gap 6 mmol/L (5-15) Blood Urea Nitrogen 33 mg/dL (7-18) H Creatinine 1.3 MG/DL (0.55-1.30) Estimat Glomerular Filtration Rate 59.7 mL/min (>60) Glucose Level 97 MG/DL (74-106) Hemoglobin A1c 6.9 % (4.3-6.0) H Calcium Level 8.0 MG/DL (8.5-10.1) L Iron Level 16 ug/dL (50-175) L Total Iron Binding Capacity 401 ug/dL (250-450) Percent Iron Saturation 4 % (15-50) L Unsaturated Iron Binding 385 ug/dL (112-346) H Ferritin 15 NG/ML (8-388) Total Bilirubin 0.9 MG/DL (0.2-1.0) Aspartate Amino Transf (AST/SGOT) 57 U/L (15-37) H Alanine Aminotransferase (ALT/SGPT) 42 U/L (12-78) Alkaline Phosphatase 104 U/L (46-116) Lactate Dehydrogenase 396 U/L (81-234) H Troponin I 0.138 ng/mL (0.000-0.056) Total Protein 7.5 G/DL (6.4-8.2) Albumin 3.5 G/DL (3.4-5.0) Globulin 4.0 g/dL Albumin/Globulin Ratio 0.9 (1.0-2.7) L Triglycerides Level 87 MG/DL (30-150) Cholesterol Level 118 MG/DL (< 200) LDL Cholesterol 70 mg/dL (<100) HDL Cholesterol 39 MG/DL (40-60) L Cholesterol/HDL Ratio 3.0 (3.3-4.4) L Vitamin B12 Level 1253 PG/ML (193-986) H Folate 16.4 NG/ML (8.6-58.9) Thyroid Stimulating Hormone (TSH) 7.671 uiU/mL (0.358-3.740) Objective HEENT: Atraumatic and normocephalic, PERRLA, EOMI. NECK: No JVD, carotid upstroke 2+ B/L CHEST: Diminished BS. CVS: Distant S1 and S2. Regular rate and rhythm. 2/6 MSM at LSB. ABDOMEN: Soft. No organomegaly. MUSCULOSKELETAL: Positive for 2+ pitting edema in the lower extremities as well as scrotal edema. NEUROLOGIC: The patient is awake, alert and oriented times 2 NGUYỄN JOE Jul 14, 2017 17:44
--- NOTE | 2017-07-14 18:53 | General Progress Note ---
Assessment/Plan Assessment/Plan substance use d/o depression cont current meds Subjective Date patient seen: Jul 14, 2017 Neurologic/Psychiatric: Reports: anxiety, depressed, emotional problems Allergies: Coded Allergies: ASPIRIN (Verified Allergy, Unknown, 01/28/17) SERTRALINE (Verified Allergy, Unknown, 01/28/17) Objective Last 24 Hour Vital Signs Date Time Temp Pulse Resp B/P (MAP) Pulse Ox O2 Delivery O2 Flow Rate FiO2 07/14/17 12:22 98.7 07/14/17 11:52 98.7 07/14/17 01:37 98.7 07/14/17 00:00 98.7 91 21 99/70 88 Room Air 98.7 07/13/17 22:28 97.5 07/13/17 21:56 97.5 07/13/17 20:03 97.5 88 20 125/75 96 Nasal Cannula 2.0 97.5 Intake and Output 07/13/17 07/14/17 19:00 07:00 Intake Total 1000 ml Output Total 650 ml Balance 1000 ml -650 ml Intake Oral 1000 ml Output Urine Total 650 ml # Voids 4 Laboratory Tests 07/13/17 19:48: White Blood Count 5.0, Red Blood Count 4.03L, Hemoglobin 9.9L, Hematocrit 32.9L , Mean Corpuscular Volume 82, Mean Corpuscular Hemoglobin 24.6L, Mean Corpuscular Hemoglobin Concent 30.1L, Red Cell Distribution Width 18.5H, Platelet Count 92L, Mean Platelet Volume 13.3H, Neutrophils (%) (Auto) , Lymphocytes (%) (Auto) , Monocytes (%) (Auto) , Eosinophils (%) (Auto) , Basophils (%) (Auto) , Differential Total Cells Counted 100, Neutrophils % ( Manual) 72, Lymphocytes % (Manual) 16L, Monocytes % (Manual) 8, Eosinophils % ( Manual) 1, Basophils % (Manual) 2, Band Neutrophils 1, Platelet Estimate DecreasedL, Platelet Morphology Normal, Polychromasia 1+, Hypochromasia 3+, Anisocytosis 2+, Microcytosis 1+, Prothrombin Time 12.8H, Prothromb Time International Ratio 1.2H, Activated Partial Thromboplast Time 27, Sodium Level 134L, Potassium Level 4.0, Chloride Level 98, Carbon Dioxide Level 30, Anion Gap 6, Blood Urea Nitrogen 33H, Creatinine 1.3, Estimat Glomerular Filtration Rate 59.7, Glucose Level 97, Hemoglobin A1c 6.9H, Calcium Level 8.0L, Iron Level 16L, Total Iron Binding Capacity 401, Percent Iron Saturation 4L, Unsaturated Iron Binding 385H, Ferritin 15, Total Bilirubin 0.9, Aspartate Amino Transf (AST/SGOT) 57H, Alanine Aminotransferase (ALT/SGPT) 42, Alkaline Phosphatase 104, Lactate Dehydrogenase 396H, Troponin I 0.138H, Total Protein 7.5, Albumin 3.5, Globulin 4.0, Albumin/Globulin Ratio 0.9L, Triglycerides Level 87, Cholesterol Level 118, LDL Cholesterol 70, HDL Cholesterol 39L, Cholesterol/HDL Ratio 3.0L, Vitamin B12 Level 1253H, Folate 16.4, Thyroid Stimulating Hormone (TSH) 7.671H Height (Feet): 5 Height (Inches): 6.00 Weight (Pounds): 130 General Appearance: no apparent distress, alert Neurologic: oriented x 3, responsive, depressed affect Nicolette Franklin M.D. Jul 14, 2017 18:53
--- NOTE | 2017-07-14 22:00 | Consultation ---
DATE OF CONSULTATION: 07/13/2017 CARDIOLOGY CONSULTATION CONSULTING PHYSICIAN: Abdoulaye Valdez M.D. REFERRING PHYSICIAN: Lala Augustine M.D. REASON FOR CONSULTATION: Management of elevated troponin I level. HISTORY OF PRESENT ILLNESS: The patient is a very unfortunate 46-year-old gentleman with history of dual-chamber pacemaker, history of aortic valve replacement, who presents to the hospital with chest pain for about a day, described as substernal pain with radiation to his back, sharp in nature, not responding to nitroglycerin. The patient had associated shortness of breath. At the time of arrival to the emergency department, blood pressure was 117/79, respirations of 12, pulse of 94, and O2 saturation of 99%. A 12-lead electrocardiogram showed sinus rhythm with a ventricular paced rhythm, heart rate of 98. He was admitted to the telemetry for further evaluation and management. PAST MEDICAL HISTORY: 1. Aortic valve replacement. 2. Dual-chamber pacemaker implantation. 3. History of seizure disorder. 4. Neurological problem. PAST SURGICAL HISTORY: 1. Thoracotomy with aortic valve replacement. 2. Pacemaker implantation. MEDICATIONS: List of medication, Protonix 40 mg p.o. daily, Lipitor 20 mg p.o. daily, and nitroglycerin 0.4 mg sublingual q.5 minutes p.r.n. chest pain. ALLERGIES: To aspirin and sertraline. FAMILY HISTORY: No premature coronary artery disease in first-degree relatives. SOCIAL HISTORY: He is homeless. There is history of polysubstance abuse including cocaine, marijuana, and alcohol. REVIEW OF SYSTEMS: A 12-system review done and essentially negative except what mentioned in the history of present illness. PHYSICAL EXAMINATION: VITAL SIGNS: At the time of arrival to the hospital, blood pressure was 117/79, respirations of 12, pulse of 94, temperature 97.9 degrees Fahrenheit, and O2 saturation of 99%. HEENT: Atraumatic and normocephalic. Anicteric. Pupils are equal, round, and reactive to light and accommodation. Extraocular muscles intact. NECK: JVP is less than 5 cm. No carotid bruit. Carotid upstrokes 2+ bilaterally. CARDIOVASCULAR: Normal S1 and S2. Regular rate and rhythm. No murmurs, gallops, or rubs. Distant heart sounds altogether. LUNGS: Diminished breath sounds in both lungs. ABDOMEN: Soft, nontender, and nondistended. No hepatosplenomegaly. Positive bowel sounds. EXTREMITIES: There is 2+ to 3+ bilateral lower extremity edema. LABORATORY AND DIAGNOSTIC DATA: WBC 5.9, hemoglobin 9.4, hematocrit 31.0, and platelet count is 91. Chemistry, sodium 136, potassium 3.4, chloride 99, bicarbonate 32, BUN of 30, creatinine 1.2, and glucose is 102. Calcium is 8.2. Troponin I was 0.125, and proBNP was 5330. INR was 1.2. Chest x-ray showed cardiomegaly with dual-chamber pacemaker, aortic valve prosthesis and sternal wires, had some mild interstitial edema. ASSESSMENT AND PLAN: The patient is a very unfortunate 46-year-old gentleman, seen in Cardiology consultation for management of chest pain. 1. Chest pain, first troponin I level is elevated. I suspect cardiomyopathy, given cardiomegaly on chest x-ray. The patient is homeless and noncompliant and using illicit substances, no ischemic workup is warranted for this patient as long as he continues the above substances. Given the fact that he may have myocarditis/heart failure, he will require 2D echocardiography. Further therapeutic and diagnostic decision will be based on the results of 2D echocardiography. In the meantime, the patient will be continued on furosemide, nifedipine, and atorvastatin. He is allergic to aspirin. 2. History of aortic valve replacement. 3. History of status post dual-chamber pacemaker implantation, currently sinus rhythm with ventricular paced rhythm. 4. History of seizure disorder, most likely due to alcohol. 5. Thrombocytopenia, most likely due to alcohol. 6. Hypokalemia. I would recommend correction of potassium particularly when the patient is on diuretics. I would like to thank, Dr. Augustine, for the courtesy of this consultation. Abdoulaye Valdez M.D. DR: TANIKA JOB#: [id number] CC:
--- NOTE | 2017-07-15 01:58 | General Progress Note ---
Assessment/Plan Assessment/Plan 1. Thrombocytopenia, likely secondary to underlying liver cirrhosis. --> The patient with persistent alcohol abuse, has pulmonary hypertension as well artery. 2. Anemia due to underlying chronic disease. --> Continue to closely monitor for improvement. --> anemia panel reviewed. Iron 16, TIBC 401, Ferritin 15, B12 1253, Folate 16.4 , TSH 7.8 3. Acute coronary syndrome, on heparin drip, which has been discontinued due to underlying thrombocytopenia and has been seen by Cardiology Service. --> In case of extreme emergency, can restart heparin drip as platelet count has been persistently 80,000 to 150,000. 4. Coagulopathy due to underlying alcohol abuse, myelosuppression. --> Continue to closely monitor. 5. Chest pain, open heart surgery history, he is high risk, refusing 2D echo. 6. Noncompliance, has followed up multiple times in the past. 7. Non-ST segment elevation myocardial infarction. 8. Left testicular pain. Subjective Date patient seen: Jul 14, 2017 Constitutional: Denies: no symptoms, chills, diaphoresis, fever, malaise, weakness, other HEENT: Denies: no symptoms, eye pain, blurred vision, tearing, double vision, ear pain, ear discharge, nose pain, nose congestion, throat pain, throat swelling, mouth pain, mouth swelling, other Cardiovascular: Denies: no symptoms, chest pain, edema, irregular heart rate, lightheadedness, palpitations, syncope, other Respiratory: Denies: no symptoms, cough, orthopnea, shortness of breath, SOB with excertion, SOB at rest, sputum, stridor, wheezing, other Gastrointestinal/Abdominal: Denies: no symptoms, abdomen distended, abdominal pain, black stools, tarry stools, blood in stool, constipated, diarrhea, difficulty swallowing, nausea, poor appetite, poor fluid intake, rectal bleeding , vomiting, other Genitourinary: Denies: no symptoms, burning, discharge, frequency, flank pain, hematuria, incontinence, pain, urgency, other Neurologic/Psychiatric: Denies: no symptoms, anxiety, depressed, emotional problems, headache, numbness, paresthesia, pre-existing deficit, seizure, tingling, tremors, weakness, other Endocrine: Denies: no symptoms, excessive sweating, flushing, intolerance to cold, intolerance to heat, increased hunger, increased thirst, increased urine, unexplained weight gain, unexplained weight loss, other Allergies: Coded Allergies: ASPIRIN (Verified Allergy, Unknown, 01/28/17) SERTRALINE (Verified Allergy, Unknown, 01/28/17) Subjective Agitated. Noncompliant. Objective Last 24 Hour Vital Signs Date Time Temp Pulse Resp B/P (MAP) Pulse Ox O2 Delivery O2 Flow Rate FiO2 07/14/17 12:22 98.7 07/14/17 11:52 98.7 Height (Feet): 5 Height (Inches): 6.00 Weight (Pounds): 130 General Appearance: agitated Christo Loco MD Jul 15, 2017 01:58
--- NOTE | 2017-07-15 09:59 | Discharge Summary ---
Discharge Summary Discharge Summary Discharge Summary DATE OF ADMISSION: 07/13/2017 DATE OF DISCHARGE: 07/14/2017 REASON FOR ADMISSION: 46 years old male with a history of open heart surgery , aortic valve replacement, dual-chamber pacemaker , presented to ED for evaluation of chest pain for 1 day. The pain was described as localized to substernal area, without radiation. Patient received nitroglycerin by paramedics which did not relieve his pain. Patient allergic to aspirin. Patient reported shortness of breath, but denied palpitations and diaphoresis, nausea and vomiting. Patient also reported that he had left inguinal hernia out since that morning. Patient reported passing gas. Last bowel movement was day before presentation. Workup in emergency room revealed troponin- 0.125. Vital signs were stable. Pulse oximetry was stable on room air. EKG revealed sinus rhythm with V pacing , no acute ischemic changes. Chest x-ray revealed cardiomegaly and mild interstitial edema. Hemoglobin- 9.4 hematocrit -31. Platelets- 91. Potassium- 3.4. Pro BNP -5330 . Urine tox screen was positive for amphetamine, cocaine, marijuana. Alcohol level 5. Patient with multiple prior emergency room visits for chest pain, however always left AGAINST MEDICAL ADVICE and was noncompliant with recommendations and treatment. Patient was admitted for acute coronary syndrome , NSTEMI, anasarca, noncompliance with medication, polysubstance abuse. CONSULTANTS: fish rod maker, Dr. Valdez. engine manager/oncologist, Dr. Loco psychiatrist, Dr. Franklin [facility] COURSE: Patient admitted to telemetry floor. Patient initially was started on heparin drip until seen by fish rod maker. Per fish rod maker patient had atypical chest pain or shortness of breath , most likely due to acute heart failure. Heparin drip was stopped, and patient was started on Heparin for DVT prophylaxis. Patient was on diuresis. Cardiorenal parameters and volumes were closely monitored. According to fish rod maker , probable myocarditis due to polysubstance abuse. Echocardiogram was ordered to further proceed with the precise treatment. According to fish rod maker patient was not a candidate for ischemic workup or cardiac catheterization in view of polysubstance abuse and compliance issues. Blood pressure was managed with nifedipine with holding parameters. Pain management provided with morphine. Statin was continued. GI prophylaxis provided. Second troponin- 0.138. Lipid panel within normal limits. Patient was also complaining of left inguinal pain secondary to left inguinal hernia . CT of the abdomen and pelvis along with ECHO were ordered and were pending. Side Stitching Machine Operator closely followed. Thrombocytopenia was likely due to underlying liver disease. Anemia workup revealed evidence of anemia of underlying chronic disease. Counts were closely monitored , no need for transfusion. Psychiatrist closely followed and diagnosed patient with polysubstance abuse and depression. Patient was continued on Depakote. Patient was counseled on abstinence from street drugs and alcohol. Patient decided to sign AGAINST MEDICAL ADVICE. Patient became very aggressive, declined both CT of the abdomen and pelvis and ECHO and wanted to leave. The risks and consequences of signing AGAINST MEDICAL ADVICE were discussed with the patient. Patient refused to listen. Security was called. Patient declined to sign AMA form. Patient was escorted out of the building by security. FINAL DIAGNOSES: Atypical chest pain with shortness of of breath likely secondary to acute heart failure. Acute coronary syndrome. Possible NSTEMI Probable myocarditis secondary to polysubstance abuse. Anasarca. Noncompliance Polysubstance-abuse(cocaine, amphetamine, ETOH). Status post dual-chamber pacemaker implantation. History of aortic valve replacement. Thrombocytopenia, secondary to underlying liver disease. Liver cirrhosis Anemia due to underlying chronic disease. Depression. I have been assigned to dictate discharge summary for this account. I was not involved in the patient's management. Estephania Chaves NP ([place]) Jul 15, 2017 09:59
== END 2017-07-14 13:40 | disposition left against medical advice (07) | DRG 190 ==
LOC: EDBD 22:30 → EMR 22:49 → 2E 07-13 00:35 → EDBEDREQ 07-13 02:21
DX: I21.4 Non-ST elevation (NSTEMI) myocardial infarction (principal); D69.59 Other secondary thrombocytopenia; D68.9 Coagulation defect, unspecified; I27.20 Pulmonary hypertension, unspecified; I50.9 Heart failure, unspecified; I51.4 Myocarditis, unspecified; Z91.19 Patient's noncompliance with other medical treatment and regimen; Z59.0 Homelessness; K40.90 Unilateral inguinal hernia, without obstruction or gangrene, not specified as recurrent; Z95.0 Presence of cardiac pacemaker; F14.10 Cocaine abuse, uncomplicated; F10.10 Alcohol abuse, uncomplicated; F15.10 Other stimulant abuse, uncomplicated; Z95.2 Presence of prosthetic heart valve; K74.60 Unspecified cirrhosis of liver; D64.9 Anemia, unspecified; F32.9 Major depressive disorder, single episode, unspecified; Z88.6 Allergy status to analgesic agent; Z88.8 Allergy status to other drugs, medicaments and biological substances; N50.812 Left testicular pain; F12.10 Cannabis abuse, uncomplicated; E87.6 Hypokalemia; R60.1 Generalized edema
CPT/HCPCS: 36415; 71045; 80053; 80061; 80307; 80329; 81003; 82607; 82728; 82746; 83036; 83540; 83550; 83615; 83880; 84443; 84484; 85007; 85025; 85610; 85730; 87081; 93005; 99285; J2405